=== PATIENT | male | born 1950 | race Caucasian/White ===

== ENCOUNTER → 2020-03-11 10:56 | Outpatient (BNVA) | payer MEDICARE, SELFPAY | PROVIDERS: Family Provider Nurse Practitioner; PCP Nurse Practitioner Family; Visit Provider Nurse Practitioner Family | DX: R42 Dizziness and giddiness (principal); R05 Cough; J18.9 Pneumonia, unspecified organism | CPT/HCPCS: 71046; 80053; 85025 ==

== ENCOUNTER 2020-03-13 09:45 | Emergency (ER) | payer MEDICARE, SELFPAY ==
[2020-03-13 09:49] VITALS: BP 163/85; PULSE 105; RESP 15; TEMP 36.8; O2SAT 98; BMI 27.8
--- NOTE | 2020-03-13 10:13 | W.ED.CHESTPA ---
HPI - Chest Pain General: Chief Complaint: Chest Pain Stated Complaint: chest pressure Time Seen by Provider: 03/13/20 09:48 History of Present Illness: HPI narrative: Patient presents with a complaint of cough and shortness of breath. He denies any fever. Patient complained of chest pain in triage however tells me that he does not have any pain or discomfort except for when he coughs. MD complaint: chest discomfort Onset (ago): unknown Timing of current episode: episodic Prior episodes: Yes Onset: during rest and during exertion Pain location: substernal and epigastric Pain radiation: none Quality: burning Relieving factors: nothing Exacerbating factors: exertion Associated symptoms: Reports dyspnea Review of Systems General: Reports: 10 or more systems reviewed and unremarkable except in HPI and below Resp: Reports: dyspnea PFSH ED PFSH: Medical History Anxiety Diabetes mellitus Hyperlipidemia Hypertension Surgical History Hx of amputation Hx of colonoscopy Social History Smoking and tobacco status: current every day smoker cigarettes Packs smoked per day: 1 Years cigarettes smoked: 60 Second hand smoke exposure: Yes Alcohol intake: former Year of sobriety/quit date alcohol: 1985 Substance/Drug Use: never Lives independently: Yes Household members: children Marital status: service: No Current occupational status: retired History of recent travel: No Current gender identity: Male Physical Exam Const: COMMON NORMALS: no acute distress, patient oriented x3, no limitations and alert HENMT: COMMON NORMALS: normocephalic, atraumatic, external ears normal and Normal external nose present HEAD & SCALP: normocephalic and atraumatic FACE & SINUS: normal facial exam NOSE: Normal external nose present EXTERNAL EAR: Yes external ears normal MOUTH: Normal oral and palatal mucosa present Neck/C-Spine: COMMON NORMALS: full ROM, no lymphadenopathy, supple, no meningeal signs and no JVD GENERAL: Yes normal visual inspection Resp: COMMON NORMALS: normal respiratory effort, No retractions, No use of accessory muscles and clear to auscultation bilaterally AUSCULTATION: clear to auscultation bilaterally Cardio: COMMON NORMALS: no JVD, regular rate and regular rhythm RATE: regular rate RHYTHM: regular rhythm GI: COMMON NORMALS: Normal to inspection, nondistended, normoactive bowel sounds present, Soft to palpation, non-tender, No hepatosplenomegaly present and no masses INSPECTION: Yes normal to inspection AUSCULTATION: Yes normoactive bowel sounds PALPATION: Yes Soft to palpation and Yes No hepatosplenomegaly present PERCUSSION: normal to percussion : COMMON NORMALS: Yes no CVA tenderness BLADDER/KIDNEY EXAM: Yes no CVA tenderness Back/Pelvis: COMMON NORMALS: no CVA tenderness, thoracic and lumbar spine normal to inspection, no thoracic nor lumbar tenderness, thoraco-lumbar ROM normal and straight leg raise negative bilaterally Extremity: COMMON NORMALS: normal to inspection, full ROM, capillary refill normal, no joint enlargement, no clubbing, cyanosis or edema, no calf tenderness and no pedal edema Neuro: COMMON NORMALS: patient oriented x3, moves all extremities, no focal motor deficits and no sensory deficits noted SENSORIUM/ORIENTATION: Yes alert MENINGEAL SIGNS: Yes no meningeal signs Psych: COMMON NORMALS: mental status grossly normal, Normal thought process present, cooperative, normal affect and speech normal SPEECH: Yes normal speech THOUGHT PROCESS: Normal thought process present Skin: COMMON NORMALS: no rashes or lesions noted, no wounds, turgor normal, no jaundice, no petechiae and no mottling GENERAL SKIN EXAM: no rashes or lesions noted and turgor normal Course Vital Signs: Vital signs: Vital Signs Temperature 98.2 F 03/13/20 09:49 Pulse Rate 96 03/13/20 12:08 Respiratory Rate 18 03/13/20 12:08 Blood Pressure 166/87 03/13/20 12:08 Pulse Oximetry 98 03/13/20 12:08 MDM - Chest Pain Lab Data: Labs: Lab Results 03/13/20 03/13/20 03/13/20 Range/Units 10:19 10:19 10:19 WBC 15.1 H (4.0-10.0) 10^3/ uL RBC 4.76 (4.1-5.3) 10^6/u L Hgb 14.1 (11.7-16.6) g/dL Hct 43.5 (42.0-52.0) % MCV 91.4 (80-94) fL MCH 29.6 (28.0-34.0) pg MCHC 32.4 (30.0-36.0) g/dL RDW 13.9 (12.1-15.1) % Plt Count 256 (130-400) 10^3/c mm MPV 10.4 (7.4-10.4) fL Neut % (Auto) 74.3 % Lymph % (Auto) 17.6 % [place] % (Auto) 6.2 % Eos % (Auto) 1.0 % Baso % (Auto) 0.4 % Neut # (Auto) 11.20 H (1.8-7.7) 10^3/u L Lymph # (Auto) 2.7 (0.8-4.8) 10^3/u L [place] # (Auto) 0.9 (0.2-0.9) 10^3/u L Eos # (Auto) 0.2 (0.0-0.8) 10^3/u L Baso # (Auto) 0.1 (0.0-0.1) 10^3/u L Nucleated RBC % (a uto) 0 % Nucleated RBCs # 0.0 /100WBC PT 12.80 (10.5-13.3) SECO NDS INR 0.94 (0.8-1.2) D-Dimer 0.86 H (0-0.59) ug/mIFE U Sodium 140 (136-145) mmol/L Potassium 3.7 (3.5-5.1) mmol/L Chloride 106 (98-107) mmol/L Carbon Dioxide 25 (22-29) mmol/L Anion Gap 12.7 (5-19) BUN 20 (8-23) mg/dL Creatinine 0.9 (0.7-1.2) mg/dL GFR Calculation Not Reportable Glucose 150 H (65-115) mg/dL Calculated Osmolal ity 289 (285-295) mOsm/k g Calcium 9.8 (8.5-10.5) mg/dL Total Bilirubin 0.2 (0.15-1.2) mg/dL AST 11 (0-40) U/L ALT 7 (0-41) U/L Alkaline Phosphata se 68 (40-130) IU/L Troponin T Baselin e (0-15) ng/L Troponin T 120 Min curyung (0-15) ng/L NT-Pro-B Natriuret Pep 131 H (0-125) pg/mL Total Protein 6.9 (6.6-8.7) g/dL Albumin 4.4 (3.5-5.2) g/dL Globulin 2.5 (1.3-4.6) g/dL 03/13/20 03/13/20 Range/Units 10:19 12:06 WBC (4.0-10.0) 10^3/ uL RBC (4.1-5.3) 10^6/u L Hgb (11.7-16.6) g/dL Hct (42.0-52.0) % MCV (80-94) fL MCH (28.0-34.0) pg MCHC (30.0-36.0) g/dL RDW (12.1-15.1) % Plt Count (130-400) 10^3/c mm MPV (7.4-10.4) fL Neut % (Auto) % Lymph % (Auto) % [place] % (Auto) % Eos % (Auto) % Baso % (Auto) % Neut # (Auto) (1.8-7.7) 10^3/u L Lymph # (Auto) (0.8-4.8) 10^3/u L [place] # (Auto) (0.2-0.9) 10^3/u L Eos # (Auto) (0.0-0.8) 10^3/u L Baso # (Auto) (0.0-0.1) 10^3/u L Nucleated RBC % (a uto) % Nucleated RBCs # /100WBC PT (10.5-13.3) SECO NDS INR (0.8-1.2) D-Dimer (0-0.59) ug/mIFE U Sodium (136-145) mmol/L Potassium (3.5-5.1) mmol/L Chloride (98-107) mmol/L Carbon Dioxide (22-29) mmol/L Anion Gap (5-19) BUN (8-23) mg/dL Creatinine (0.7-1.2) mg/dL GFR Calculation Glucose (65-115) mg/dL Calculated Osmolal ity (285-295) mOsm/k g Calcium (8.5-10.5) mg/dL Total Bilirubin (0.15-1.2) mg/dL AST (0-40) U/L ALT (0-41) U/L Alkaline Phosphata se (40-130) IU/L Troponin T Baselin e 12 (0-15) ng/L Troponin T 120 Min [place] 11.52 (0-15) ng/L NT-Pro-B Natriuret Pep (0-125) pg/mL Total Protein (6.6-8.7) g/dL Albumin (3.5-5.2) g/dL Globulin (1.3-4.6) g/dL Discharge Plan Discharge Patient Disposition: Home Clinical Impression: Atypical chest pain Condition: Stable Prescriptions: No Action prednisone 20 mg tablet 40 mg PO DAILY 5 Days Qty: 10 RF: 0 doxycycline hyclate 100 mg capsule 100 mg PO BID 10 Days Qty: 20 RF: 0 vitamin E 200 unit Capsule 200 unit PO DAILY RF: 0 pravastatin 40 mg Tablet 40 mg PO BEDTIME RF: 0 atenolol 100 mg Tablet 100 mg PO DAILY RF: 0 Vitamin C 250 mg Tablet 250 mg PO DAILY RF: 0 metformin 500 mg Tablet Extended Release 24hr 1,000 mg PO DAILY RF: 0 garlic 200 mg Tablet 200 mg PO DAILY RF: 0 Discharge Orders: Discharge Order (Routine); Ordered 03/13/20 Ordered By: Alton Curiel Referrals: Tracy Vásquez FNP [Primary Care Provider] - Coding Level of Care Code ED Flight Engineer Manager for Chg Fwd Exam Comprehensive
[2020-03-13 10:18] VITALS: BP 153/82; PULSE 104; RESP 15; O2SAT 97
--- NOTE | 2020-03-13 10:32 | XRR_ITS ---
PROCEDURE INFORMATION: Exam: XR Chest, 1 View Exam date and time: 03/13/2020 10:33 AM Age: 69 years old Clinical indication: Dyspnea; Additional info: Cp/dyspnea TECHNIQUE: Imaging protocol: XR of the chest Views: 1 view. COMPARISON: CR XR chest 2V* [id number] 03/11/2020 11:16 AM FINDINGS: Lungs: Emphysematous change and interstitial prominence. Pleural space: Incomplete visualization of the right costophrenic angle. Mild pleural thickening. Heart/Mediastinum: Epicardial fat, without cardiomegaly. Bones/joints: Right rib fractures. Osteopenia and degenerative change. Other findings: Punctate radiopaque densities overlying the proximal left humerus. When correlating with the previous study, no significant interval changes are present. XR/XR chest 1V portable [id number] IMPRESSION: Stable appearance of the chest, not significantly changed from 03/11/20.
[2020-03-13 10:41] LABS: Basophils # 0.1 10^3/uL (0.0-0.1); Basophils % 0.4 %; Eosinophils # 0.2 10^3/uL (0.0-0.8); Hematocrit 43.5 % (42.0-52.0); Hemoglobin 14.1 g/dL (11.7-16.6); Lymphocytes # 2.7 10^3/uL (0.8-4.8); Lymphocytes % 17.6 %; Mean Corpuscular HGB Conc 32.4 g/dL (30.0-36.0); Mean Corpuscular Hemoglobin 29.6 pg (28.0-34.0); Mean Corpuscular Volume 91.4 fL (80-94); Mean Platelet Volume 10.4 fL (7.4-10.4); Monocytes # 0.9 10^3/uL (0.2-0.9); Monocytes % 6.2 %; Neutrophils % 74.3 %; Nucleated Red Blood Cells % 0 %; Platelet Count 256 10^3/cmm (130-400); Red Blood Count 4.76 10^6/uL (4.1-5.3); Red Cell Distribution Width 13.9 % (12.1-15.1); White Blood Count 15.1 10^3/uL (4.0-10.0)
[2020-03-13 10:52] VITALS: BP 122/85; PULSE 98; RESP 18; O2SAT 94
[2020-03-13] MEDS: sodium chloride 0.9% 500 ML 999 ML IV (10:52)
[2020-03-13 11:00] LABS: INR 0.94 (0.8-1.2)
[2020-03-13 11:03] LABS: D Dimer 0.86 ug/mIFEU (0-0.59)
[2020-03-13 11:13] LABS: Troponin(5th) Baseline 12 ng/L (0-15)
--- NOTE | 2020-03-13 11:16 | PC.NURSE ---
report recieved from berny bryant assumed care.
--- NOTE | 2020-03-13 11:20 | CTR_ITS ---
PROCEDURE INFORMATION: Exam: CT Angiography Chest With Contrast Exam date and time: 03/13/2020 11:35 AM Age: 69 years old Clinical indication: Cough; Additional info: Cp TECHNIQUE: Imaging protocol: Computed tomographic angiography of the chest with intravenous contrast. 3D rendering: MIP and/or 3D reconstructed images were created by the technologist. Radiation optimization: All CT scans at this facility use at least one of these dose optimization techniques: automated exposure control; mA and/or kV adjustment per patient size (includes targeted exams where dose is matched to clinical indication); or iterative reconstruction. Contrast material: OMNI 350; Contrast volume: 95 ml; Contrast route: INTRAVENOUS (IV); COMPARISON: CR (CHEST, ) 03/13/2020 10:38 AM RADIATION DOSE METRICS: Total DLP (mGy-cm): 1061.46 FINDINGS: Pulmonary arteries: No pulmonary embolus in the opacified pulmonary arteries. Aorta: Atherosclerotic plaque and calcification in the thoracic aorta. Lungs: Emphysematous change, interstitial prominence, bronchial dilatation, mild airspace disease, and chronic granulomatous disease. Noncalcified 3 mm right upper lobe nodule (series 2: Image 229). For patients at low risk (minimal or absent history of smoking and of other known risk factors), no routine follow-up is indicated. For patients at high risk (history of smoking or of other known risk factors), consider optional CT at 12 months. (Silvino et al., Fleischner Society, 2017). Pleural space: No pleural effusion. Heart: Coronary artery calcification. Mediastinal space: Small hiatal hernia. Lymph nodes: Calcified and noncalcified lymph nodes, the majority of which are subcentimeter in size. Kidneys and ureters: Renal cysts, including a 8.1 cm left renal cyst. Bones/joints: Old rib fractures. Degenerative change. Multiple punctate metallic densities in the proximal left humerus. Scoliosis, degenerative change, and Schmorl's nodes. CT/CT angio chest PE protcl [id number] IMPRESSION: 1. No pulmonary embolus in the opacified pulmonary arteries. 2. Emphysematous change, interstitial prominence, bronchial dilatation, mild airspace disease, and chronic granulomatous disease. 3. Noncalcified 3 mm right upper lobe nodule (series 2: Image 229). 4. Additional findings as described above. Radiation Dose CTDIVOL = (mGy): DLP = 1061.46 (mGy-cm)
[2020-03-13 11:22] LABS: Alanine Aminotransferase 7 U/L (0-41); Albumin Level 4.4 g/dL (3.5-5.2); Alkaline Phosphatase 68 IU/L (40-130); Anion Gap 12.7 (5-19); Aspartate Amino Transferase 11 U/L (0-40); Blood Urea Nitrogen 20 mg/dL (8-23); Calcium 9.8 mg/dL (8.5-10.5); Carbon Dioxide 25 mmol/L (22-29); Chloride 106 mmol/L (98-107); Globulin 2.5 g/dL (1.3-4.6); Glucose 150 mg/dL (65-115); NT Pro B Type Natriuretic Pept 131 pg/mL (0-125); Osmolality Calculated 289 mOsm/kg (285-295); Potassium 3.7 mmol/L (3.5-5.1); Sodium 140 mmol/L (136-145); Total Bilirubin 0.2 mg/dL (0.15-1.2); Total Protein 6.9 g/dL (6.6-8.7)
[2020-03-13 12:08] VITALS: BP 166/87; PULSE 96; RESP 18; O2SAT 98
[2020-03-13 12:30] VITALS: BP 165/94; PULSE 98; RESP 14; O2SAT 95
[2020-03-13 12:32] LABS: Troponin 5 2HR 11.52 ng/L (0-15)
[2020-03-13 13:00] VITALS: BP 156/95; PULSE 96; RESP 16; O2SAT 96
[2020-03-13 13:17] LABS: Troponin 5 2HR Delta -0.48 ABS# (0-10)
== END 2020-03-13 13:22 | disposition home or self-care (01) ==
PROVIDERS: Emergency Provider Family Medicine; PCP Nurse Practitioner Family
DX: R07.89 Other chest pain (principal); E11.9 Type 2 diabetes mellitus without complications; E78.5 Hyperlipidemia, unspecified; I10 Essential (primary) hypertension; F17.210 Nicotine dependence, cigarettes, uncomplicated
CPT/HCPCS: 12345; 36415; 71045; 71275; 80053; 83880; 84484; 85025; 85378; 85610; 99283; 99284; J7040

== ENCOUNTER → 2020-03-14 11:49 | Outpatient (BNVA) | payer MEDICARE, SELFPAY | PROVIDERS: PCP Nurse Practitioner Family; Visit Provider Nurse Practitioner Family | DX: E11.9 Type 2 diabetes mellitus without complications (principal); K21.9 Gastro-esophageal reflux disease without esophagitis; R42 Dizziness and giddiness; R07.89 Other chest pain; J18.9 Pneumonia, unspecified organism; Z68.27 Body mass index [BMI] 27.0-27.9, adult; F17.210 Nicotine dependence, cigarettes, uncomplicated | CPT/HCPCS: 80061; 83036 ==

== ENCOUNTER → 2020-03-24 09:10 | Outpatient (BNVA) | payer MEDICARE, SELFPAY | PROVIDERS: PCP Nurse Practitioner Family; Visit Provider Nurse Practitioner Family | DX: E11.65 Type 2 diabetes mellitus with hyperglycemia (principal); M25.50 Pain in unspecified joint; K21.9 Gastro-esophageal reflux disease without esophagitis; E78.5 Hyperlipidemia, unspecified; R94.31 Abnormal electrocardiogram [ECG] [EKG]; Z11.59 Encounter for screening for other viral diseases; Z68.29 Body mass index [BMI] 29.0-29.9, adult | CPT/HCPCS: 85651; 86038; 86140; 86431; 86618; 86666; 86757; 87635 ==

== ENCOUNTER → 2020-08-19 09:40 | Outpatient (BNVA) | payer MEDICARE, SELFPAY | PROVIDERS: PCP Nurse Practitioner; Visit Provider Nurse Practitioner | DX: E11.65 Type 2 diabetes mellitus with hyperglycemia (principal); K21.9 Gastro-esophageal reflux disease without esophagitis; I10 Essential (primary) hypertension | CPT/HCPCS: 80053; 80061; 82043; 83036 ==

== ENCOUNTER → 2020-11-17 10:14 | Outpatient (BNVA) | payer MEDICARE, SELFPAY | PROVIDERS: PCP Nurse Practitioner; Visit Provider Nurse Practitioner | DX: K21.9 Gastro-esophageal reflux disease without esophagitis (principal); I10 Essential (primary) hypertension; E11.65 Type 2 diabetes mellitus with hyperglycemia | CPT/HCPCS: 80053; 81000 ==

== ENCOUNTER → 2021-02-08 09:37 | Outpatient (BNVA) | payer MEDICARE, SELFPAY | PROVIDERS: PCP Nurse Practitioner; Visit Provider Nurse Practitioner | DX: K21.9 Gastro-esophageal reflux disease without esophagitis (principal); I10 Essential (primary) hypertension; E11.65 Type 2 diabetes mellitus with hyperglycemia; R09.81 Nasal congestion; E78.5 Hyperlipidemia, unspecified; Z79.899 Other long term (current) drug therapy | CPT/HCPCS: 81000 ==

== ENCOUNTER → 2022-08-28 17:37 | Outpatient (BNVA) | payer MEDICARE, SELFPAY | PROVIDERS: PCP Nurse Practitioner; Visit Provider Nurse Practitioner Family | DX: R53.83 Other fatigue (principal); E11.65 Type 2 diabetes mellitus with hyperglycemia; E55.9 Vitamin D deficiency, unspecified | CPT/HCPCS: 80053; 80061; 82043; 82306; 82607; 83036; 84403; 84443; 85025 ==

== ENCOUNTER → 2023-01-22 08:14 | Outpatient (BNVA) | payer SELFPAY | PROVIDERS: PCP Nurse Practitioner Family; Visit Provider Dermatology | DX: Z01.89 Encounter for other specified special examinations (principal) ==

== ENCOUNTER 2023-06-07 06:56 | Emergency (ER) | payer MEDICARE, SELFPAY ==
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
--- NOTE | 2023-06-07 07:20 | W.ED.SOB ---
HPI - SOB/Dyspnea General: Chief Complaint: Shortness of Breath/Dyspnea Stated Complaint: sob Time Seen by Provider: 06/07/23 06:57 Source: patient Mode of arrival: ambulatory History of Present Illness: HPI Narrative: 73-year-old male presents emergency room with complaints of shortness of breath sore throat and chronic cough. He has been through a couple rounds of steroids and some antibiotics he states his symptoms are still present and not really improved at all. No fever no productive cough no vomiting or diarrhea. MD elicited complaint: shortness of breath Pertinent past history: COPD Onset (ago): week(s) Timing: intermittent Severity: mild Exacerbating factors: nothing Relieving factors: nothing Associated symptoms: Reports cough and orthopnea; Deny abdominal pain, chest congestion, chest pain, diaphoresis, dizziness, extremity pain, fever(s), hemoptysis, lightheadedness, myalgias, nausea, palpitations, paresthesias, polydipsia, polyuria, rash, sense of impending doom, syncope or vomiting Treatment prior to arrival: none Review of Systems Const: Denies: fever(s), chills or diaphoresis Card: Reports: dyspnea on exertion and orthopnea; Denies: chest pain, palpitations, lightheadedness or syncope Resp: Denies: dyspnea, hemoptysis or chest congestion GI: Denies: abdominal pain, nausea or vomiting : Denies: dysuria, urinary frequency or urinary urgency Musc: Denies: neck pain, back pain or extremity pain Skin/Breast: Denies: rash Neuro: Denies: dizziness Endo: Denies: polyuria or polydipsia PFSH ED PFSH: Medical History Anxiety Chronic nasal congestion Diabetes mellitus with hyperglycemia, without long-term current use of insulin Hyperlipidemia Hypertension Personal history of nicotine dependence Surgical History Hx of amputation Hx of colonoscopy Family History Other Cancer Dementia Diabetes Heart disease Stroke Suicide Social History Smoking and tobacco/nicotine status: current every day tobacco/nicotine user cigarettes Packs smoked per day: 1 Years cigarettes smoked: 60 Second hand smoke exposure: Yes Alcohol intake: former Year of sobriety/quit date alcohol: 1985 Substance/Drug Use: never Adopted: No Caregiver/support person: No Lives independently: Yes Household members: children Housing: House Marital status: Number of children: 4 service: No Current occupational status: retired Do you think of yourself as: Straight/Heterosexual Current gender identity: Male Physical Exam Const: GENERAL APPEARANCE: cooperative and comfortable ORIENTATION/CONSCIOUSNESS: Yes awake, Yes oriented to person, Yes oriented to place and Yes oriented to time HENMT: COMMON NORMALS: normocephalic, atraumatic and hearing grossly normal bilaterally HEAD & SCALP: normocephalic and atraumatic Resp: COMMON NORMALS: normal respiratory effort, No retractions and No use of accessory muscles AUSCULTATION: crackles and wheezes Cardio: COMMON NORMALS: regular rate, regular rhythm and No murmurs present (Cardio) RATE: regular rate RHYTHM: regular rhythm GI: COMMON NORMALS: Soft to palpation and No hepatosplenomegaly present AUSCULTATION: Yes normoactive bowel sounds PALPATION: Yes Soft to palpation, No Tenderness to palpation present (GI), No Guarding due to palpation present (GI) and Yes No hepatosplenomegaly present Extremity: COMMON NORMALS: normal to inspection, capillary refill normal, no clubbing, cyanosis or edema, no calf tenderness and no pedal edema Neuro: SENSORIUM/ORIENTATION: Yes oriented to person, Yes oriented to place and Yes oriented to time Skin: COMMON NORMALS: no rashes or lesions noted GENERAL SKIN EXAM: no rashes or lesions noted Course Vital Signs: Vital signs: Vital Signs Temperature 98.2 F 06/07/23 07:21 Pulse Rate 93 06/07/23 08:50 Respiratory Rate 19 H 06/07/23 08:50 Blood Pressure 152/91 06/07/23 08:50 Pulse Oximetry 95 06/07/23 08:50 Oxygen Delivery Me thod Room Air 06/07/23 08:50 MDM - SOB/Dyspnea Medical Decision Making Chest x-ray shows some pulmonary vascular congestion. It is worse than previous but his oxygen saturations are normal. I think he does have some underlying COPD as well as some potentially some congestive heart failure his BNP is significantly elevated. He is given IV Lasix here in the emergency room recommend starting 20 mg daily of oral Lasix. Additionally start on Symbicort and started on lisinopril. Set him up for an outpatient echocardiogram and follow-up with primary care physician. Per patient's request he is asked us to set him up with a physician notes been forwarded to case management. Medical Records I reviewed the patient's medical records. Lab Data I reviewed the patient's lab results. 06/07/23 07:40 06/07/23 07:40 Labs/Radiology: Laboratory Results WBC 12.45 10^3/uL (3.29-11.43) H 06/07/23 07:40 RBC 4.72 10^6/uL (3.85-5.65) 06/07/23 07:40 Hgb 13.50 g/dL (11.27-16.99) 06/07/23 07:40 Hct 45.2 % (37-53) 06/07/23 07:40 MCV 95.8 fl (82-101) 06/07/23 07:40 MCH 28.6 pg (27-33) 06/07/23 07:40 MCHC 29.9 g/dL (30-55) L 06/07/23 07:40 RDW 14.9 % (12.1-15.1) 06/07/23 07:40 Plt Count 220 10^3/cmm (157-399) 06/07/23 07:40 MPV 10.3 fL (7.4-10.4) 06/07/23 07:40 Neut % (Auto) 70.9 % 06/07/23 07:40 Lymph % (Auto) 13.2 % 06/07/23 07:40 [place] % (Auto) 9.3 % 06/07/23 07:40 Eos % (Auto) 5.0 % 06/07/23 07:40 Baso % (Auto) 0.6 % 06/07/23 07:40 Neut # (Auto) 8.83 10^3/uL (1.8-7.7) H 06/07/23 07:40 Lymph # (Auto) 1.6 10^3/uL (0.8-4.8) 06/07/23 07:40 [place] # (Auto) 1.2 10^3/uL (0.2-0.9) H 06/07/23 07:40 Eos # (Auto) 0.6 10^3/uL (0.0-0.8) 06/07/23 07:40 Baso # (Auto) 0.1 10^3/uL (0.0-0.1) 06/07/23 07:40 Nucleated RBC % (auto) 0 % 06/07/23 07:40 Nucleated RBCs # 0.0 /100WBC 06/07/23 07:40 Sodium 142 mmol/L (136-145) 06/07/23 07:40 Potassium 4.1 mmol/L (3.5-5.1) 06/07/23 07:40 Chloride 110 mmol/L (98-107) H 06/07/23 07:40 Carbon Dioxide 20 mmol/L (22-29) L 06/07/23 07:40 Anion Gap 16.1 (5-19) 06/07/23 07:40 BUN 17 mg/dL (8-23) 06/07/23 07:40 Creatinine 1.0 mg/dL (0.7-1.2) 06/07/23 07:40 GFR Calculation Not Reportable 06/07/23 07:40 Glucose 154 mg/dL (65-115) H 06/07/23 07:40 Calculated Osmolality 299 mOsm/kg (285-295) H 06/07/23 07:40 Calcium 8.9 mg/dL (8.5-10.5) 06/07/23 07:40 Total Bilirubin 0.2 mg/dL (0.15-1.2) 06/07/23 07:40 AST 38 U/L (0-40) 06/07/23 07:40 ALT 56 U/L (0-41) H 06/07/23 07:40 Alkaline Phosphatase 79 U/L (40-130) 06/07/23 07:40 NT-Pro-B Natriuret Pep 4193 pg/mL (0-450) H 06/07/23 07:40 Total Protein 6.8 g/dL (6.6-8.7) 06/07/23 07:40 Albumin 3.0 g/dL (3.5-5.2) L 06/07/23 07:40 Globulin 3.8 g/dL (1.3-4.6) 06/07/23 07:40 Group A Strep Rapid Negative (Negative) 06/07/23 07:38 All radiology interpretation(s) finalized by discharge Discharge Plan Discharge Patient Disposition: Home Clinical Impression: Acute exacerbation of chronic obstructive airways disease, Congestive heart failure, HTN (hypertension), benign Condition: Stable Prescriptions: New lisinopril 5 mg tablet 5 mg PO DAILY Qty: 30 0RF furosemide 20 mg tablet 20 mg PO DAILY Qty: 30 0RF Symbicort 80-4.5 mcg/actuation HFA aerosol inhaler 2 inh inhalation BID Qty: 10.2 0RF No Action Farxiga 5 mg tablet 5 mg PO QAM Qty: 90 1RF pravastatin 80 mg tablet 80 mg PO DAILY Qty: 90 1RF pantoprazole [Protonix] 40 mg tablet,delayed release (DR/EC) 40 mg PO DAILY Qty: 90 1RF cholecalciferol (vitamin D3) 25 mcg (1,000 unit) capsule 25 mcg PO DAILY ascorbic acid (vitamin C) [Vitamin C] 250 mg Tablet 500 mg PO DAILY garlic 200 mg Tablet 200 mg PO DAILY ginseng 100 mg Capsule 100 mg PO DAILY vitamin E (dl, acetate) 180 mg (400 unit) Capsule 180 mg PO DAILY atenolol 100 mg tablet 100 mg PO QPM Discharge Orders: Discharge ED (Routine); Ordered 06/07/23 Ordered By: Jermaine Stone Referrals: Tracy Vásquez FNP [Primary Care Provider] - Discharge Diet: Low Salt Discharge Activity: Increase activity as tolerated Patient Instructions: Opioid Safety, Pain Management Activity Restrictions/Additional Instructions: Thank you for choosing [facility] for your healthcare needs today. Please realize this is an emergency room and that we are providing you with a medical screening exam and this may not be complete and all inclusive of all the testing and or work up that you may need to determine your ailment or severity of your illness. It is very important that you follow up as instructed or that you return to the Emergency Department should you have concerns or if your condition changes or worsens in any way. You do have some component of COPD as well as appearance of congestive heart failure and a chest x-ray. Your blood pressure was also elevated recommend that you start on lisinopril 5 mg daily Lasix 20 mg daily this all of your blood pressure and decrease fluid from congestive heart failure. We will set you up for an outpatient echocardiogram to evaluate further. Additionally recommend you start Symbicort 2 puffs twice daily for COPD. Follow-up with your primary care doctor within the next week Coding Level of Care Code ED Erp Specialist for German Blakely
[2023-06-07 07:21] VITALS: BP 142/89; PULSE 91; RESP 18; TEMP 36.8; O2SAT 94
--- NOTE | 2023-06-07 07:21 | ECG_ITS ---
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 Measurements Intervals [place] Rate: 95 P: 67 TN: 143 QRS: 119 QRSD: 130 T: 32 QT: 390 QTc: 490 Interpretive Statements SINUS RHYTHM RIGHT AXIS DEVIATION [QRS AXIS > 100] RIGHT BUNDLE BRANCH BLOCK [120+ ms QRS DURATION, UPRIGHT V1, 40+ ms S IN I/aVL/V4/V5/V6] Compared to ECG 03/13/2020 09:58:36 Right-axis deviation now present Sinus tachycardia no longer present Electronically Signed On 06-07-2023 16:27:23 CDT by Danielle Latif M.D. [id number]
[2023-06-07 07:26] VITALS: BP 146/86; PULSE 92; RESP 19; O2SAT 95
[2023-06-07 07:47] VITALS: PULSE 92; RESP 16; O2SAT 96
[2023-06-07] MEDS: ipratropium-albuterol 3 mL Neb INHALATION (07:48)
[2023-06-07 07:50] VITALS: PULSE 95
[2023-06-07 07:52] LABS: Basophils # 0.1 10^3/uL (0.0-0.1); Basophils % 0.6 %; Eosinophils # 0.6 10^3/uL (0.0-0.8); Hematocrit 45.2 % (37-53); Lymphocytes # 1.6 10^3/uL (0.8-4.8); Lymphocytes % 13.2 %; Mean Corpuscular HGB Conc 29.9 g/dL (30-55); Mean Corpuscular Hemoglobin 28.6 pg (27-33); Mean Corpuscular Volume 95.8 fl (82-101); Mean Platelet Volume 10.3 fL (7.4-10.4); Monocytes # 1.2 10^3/uL (0.2-0.9); Monocytes % 9.3 %; Neutrophils # 8.83 10^3/uL (1.8-7.7); Neutrophils % 70.9 %; Nucleated Red Blood Cells % 0 %; Platelet Count 220 10^3/cmm (157-399); Red Blood Count 4.72 10^6/uL (3.85-5.65); Red Cell Distribution Width 14.9 % (12.1-15.1); White Blood Count 12.45 10^3/uL (3.29-11.43)
[2023-06-07 07:58] LABS: Rapid Strep A Test Negative (Negative)
[2023-06-07 08:20] LABS: Alanine Aminotransferase 56 U/L (0-41); Alkaline Phosphatase 79 U/L (40-130); Anion Gap 16.1 (5-19); Aspartate Amino Transferase 38 U/L (0-40); Blood Urea Nitrogen 17 mg/dL (8-23); Calcium 8.9 mg/dL (8.5-10.5); Carbon Dioxide 20 mmol/L (22-29); Chloride 110 mmol/L (98-107); Globulin 3.8 g/dL (1.3-4.6); Glucose 154 mg/dL (65-115); Osmolality Calculated 299 mOsm/kg (285-295); Potassium 4.1 mmol/L (3.5-5.1); Sodium 142 mmol/L (136-145); Total Bilirubin 0.2 mg/dL (0.15-1.2); Total Protein 6.8 g/dL (6.6-8.7)
[2023-06-07] MEDS: FUROsemide 10 mg/mL SDV 4mL 40 MG IVP (08:43)
[2023-06-07 08:50] VITALS: BP 152/91; PULSE 93; RESP 19; O2SAT 95
[2023-06-07 08:54] LABS: NT Pro B Type Natriuretic Pept 4193 pg/mL (0-450)
--- NOTE | 2023-06-07 09:42 | DCPLANNER ---
Sent a message to [facility] to establish care with a physician vs. a Nurse practitioner. Clinic to contact patient.
== END 2023-06-07 09:42 | disposition home or self-care (01) ==
PROVIDERS: Emergency Provider Family Medicine; PCP Nurse Practitioner Family
DX: J44.1 Chronic obstructive pulmonary disease with (acute) exacerbation (principal); I11.0 Hypertensive heart disease with heart failure; I50.9 Heart failure, unspecified; F17.210 Nicotine dependence, cigarettes, uncomplicated; E11.9 Type 2 diabetes mellitus without complications; E78.5 Hyperlipidemia, unspecified
CPT/HCPCS: 36415; 71045; 80053; 83880; 85025; 87081; 87880; 93005; 94640; 96374; 99285; J1940

== ENCOUNTER → 2023-10-22 09:42 | Outpatient (BNVA) | payer SELFPAY | PROVIDERS: PCP Nurse Practitioner Family; Visit Provider Nurse Practitioner Family | DX: Z01.89 Encounter for other specified special examinations (principal) ==

== ENCOUNTER 2024-05-27 23:00 | Inpatient (IN) | payer MEDICARE, SELFPAY ==
[2024-05-27 23:01] VITALS: BP 106/72; PULSE 85; RESP 34; TEMP 36.4; O2SAT 84; BMI 27.3
--- NOTE | 2024-05-27 23:08 | XRR_ITS ---
PROCEDURE INFORMATION: Exam: XR Chest Exam date and time: 05/27/2024 11:31 PM Age: 74 years old Clinical indication: Pain; Chest pressure; Additional info: Shortness of breath TECHNIQUE: Imaging protocol: Radiologic exam of the chest. Views: 1 view. COMPARISON: CR XR chest 1V portable [id number] 06/07/2023 7:45 AM FINDINGS: Lungs: Redemonstration of diffuse interstitial opacities and bronchial wall thickening. Mild pulmonary vascular congestion is also noted. Interval increased opacity overlying the right lateral chest wall and right lateral aspect of the lung, unclear whether pulmonary parenchymal or overlapping shadows. Pleural spaces: No large pleural effusion. No pneumothorax. Heart/Mediastinum: The cardiomediastinal silhouette is stable in appearance. Vasculature: The thoracic aorta is tortuous and atherosclerotic. Bones/joints: Old fracture of the right ribs are better assessed on the prior CT of the chest from 03/13/2022. Redemonstration of multiple metallic densities in the proximal left humerus. There are degenerative changes of the left shoulder joint. Redemonstration of scoliosis and degenerative changes of the thoracic spine. XR/XR chest 1V portable [id number] IMPRESSION: 1. Redemonstration of diffuse interstitial opacities and bronchial wall thickening. Mild pulmonary vascular congestion is also noted. 2. Interval increased opacity overlying the right lateral chest wall and right lateral aspect of the lung, unclear whether pulmonary parenchymal or overlapping shadows. 3. Continued attention on follow-up is recommended. 4. The thoracic aorta is tortuous and atherosclerotic. 5. Additional chronic findings as outlined.
--- NOTE | 2024-05-27 23:09 | ECG_ITS ---
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1950 Requested By: Dorothy Armstrong Order Number: [id number] Reading MD: CATHERINE DOW Measurements Intervals [place] Rate: 79 P: 62 WI: 160 QRS: 124 QRSD: 136 T: 83 QT: 447 QTc: 513 Interpretive Statements SINUS RHYTHM WITH FREQUENT VENTRICULAR PREMATURE COMPLEXES RIGHT AXIS DEVIATION [QRS AXIS > 100] RIGHT BUNDLE BRANCH BLOCK [120+ ms QRS DURATION, UPRIGHT V1, 40+ ms S IN I/aVL/V4/V5/V6] ST DEPRESSION, CONSIDER SUBENDOCARDIAL INJURY [0.1+ mV ST DEPRESSION] Compared to ECG 06/07/2023 07:21:01 Ventricular premature complex(es) now present ST (T wave) deviation now present Electronically Signed On 05-30-2024 18:13:33 CDT by CATHERINE DOW [id number]
[2024-05-27 23:12] VITALS: PULSE 80; O2SAT 82
[2024-05-27 23:26] VITALS: PULSE 89; RESP 23; O2SAT 96
[2024-05-27 23:26] LABS: ABG PCO2 34.9 mmHg (35-45); ABG PH Result 7.39 (7.35-7.45); Alveolar-Arterial Oxygen Gradi 34.9 mmHg (5-10); Arterial Blood Gas Hematocrit 50.9 % (42-52); Base Excess ABG -3.3 mmol/L (-2.0-2.0); Blood Gas Sample Site Brachial, right; Blood Gas Sample Type Arterial; Carboxyhemoglobin 2.3 %THgb (0.4-20.1); HCO3 ABG 20.9 mmol/L (22-26); HGB O2 Sat 93.4 % (95-100); Ionized Calcium Level - ABG 1.2 mmol/L (1.1-1.4); Methemoglobin 0.9 % (0.4-1.5); Oxygen Device BIPAP; Oxygen Saturation ABG 96.5; PO2 ABG 83.4 mmHg (80.0-100.0); PO2 FiO2 Ratio Arterial Blood 151; Potassium Level - ABG 3.9 mmol/L (3.5-5.0); Total Hemoglobin 16.6 g/dL (14-18)
[2024-05-27] MEDS: methylPREDNISolone sod succ 125 mg/2 mL INJ IVP (23:26)
[2024-05-27] MEDS: ondansetron 2 mg/ML SDV 2 mL 8 MG IVP (23:26)
[2024-05-27] MEDS: sodium chloride 0.9% 1,000 ML 999 ML IV (23:26)
[2024-05-27 23:27] VITALS: PULSE 79; RESP 20; O2SAT 98
[2024-05-27] MEDS: albuterol 2.5 mg/3 mL Neb INHALATION (23:27)
[2024-05-27] MEDS: ipratropium-albuterol 3 mL Neb INHALATION (23:27)
[2024-05-27 23:29] LABS: Basophils # 0.1 10^3/uL (0.0-0.1); Basophils % 0.4 %; Eosinophils # 0.5 10^3/uL (0.0-0.8); Eosinophils % 2.5 %; Hematocrit 50.5 % (37-53); Lymphocytes # 4.5 10^3/uL (0.8-4.8); Mean Corpuscular HGB Conc 32.3 g/dL (30-55); Mean Corpuscular Hemoglobin 28.6 pg (27-33); Mean Corpuscular Volume 88.6 fl (82-101); Mean Platelet Volume 12.3 fL (7.4-10.4); Monocytes # 1.4 10^3/uL (0.2-0.9); Monocytes % 6.8 %; Neutrophils # 13.85 10^3/uL (1.8-7.7); Neutrophils % 67.6 %; Nucleated Red Blood Cells % 0 %; Platelet Count 291 10^3/cmm (157-399); Red Cell Distribution Width 14.6 % (12.1-15.1); White Blood Count 20.52 10^3/uL (3.29-11.43)
--- NOTE | 2024-05-27 23:30 | W.ED.SOB ---
HPI - SOB/Dyspnea General: Chief Complaint: Shortness of Breath/Dyspnea Stated Complaint: low blood pressure, sob, chest pain Time Seen by Provider: 05/27/24 23:01 History of Present Illness: HPI Narrative: 74-year-old man with a history of hypertension, hyperlipidemia, diabetes and tobacco dependence who presents emergency room with shortness of breath and some mild chest pain. He presents by ambulance. EMS reports he was quite hypotensive on their arrival. He lost control of his bowels. Initially his blood pressures in the 100s here. He then drops back down into the 80s. He says pressure was in his left chest. Related Data Home Medications Medication Instructions Recorded Confirmed ascorbic acid (vitamin C) 250 mg 500 mg PO DAILY 03/13/20 11/07/23 tablet (Vitamin C) garlic 200 mg tablet 200 mg PO DAILY 03/13/20 11/07/23 cholecalciferol (vitamin D3) 25 25 mcg PO DAILY 08/28/22 11/07/23 mcg (1,000 unit) capsule ginseng 100 mg capsule 100 mg PO DAILY 06/07/23 11/07/23 vitamin E (dl, acetate) 180 mg 180 mg PO DAILY 06/07/23 11/07/23 (400 unit) capsule Previous Rx's Medication Instructions Recorded albuterol sulfate 90 mcg/actuation 2 puff inhalation Q6H PRN 11/07/23 aerosol inhaler (Ventolin HFA) shortness of breath or wheezing #18 grams fluticasone fur. 100 mcg-umeclid 1 inh inhalation Q24H #60 ea 11/07/23 62.5 mcg-vilant 25 mcg inhalat.powder (Trelegy Ellipta) furosemide 20 mg tablet 20 mg PO DAILY #90 tabs 11/07/23 lisinopril 5 mg tablet 5 mg PO DAILY #90 tabs 11/07/23 pantoprazole 40 mg tablet,delayed 40 mg PO DAILY #90 tabs 11/07/23 release (Protonix) pravastatin 80 mg tablet 80 mg PO DAILY #90 tabs 11/07/23 atenolol 100 mg tablet See Rx Instructions .Route 05/21/24 .COMPLEX #30 tabs dapagliflozin propanediol 5 mg See Rx Instructions .Route 05/21/24 tablet (Farxiga) .COMPLEX #30 tabs Allergies Allergy/AdvReac Type Severity Reaction Status Date / Time Penicillins Allergy ALGY-Rash Verified 05/27/24 23:22 Review of Systems Narrative: Constitutional symptoms: Negative except as documented in HPI. Skin symptoms: Negative except as documented in HPI. Eye symptoms: Negative except as documented in HPI. ENMT symptoms: Negative except as documented in HPI. Respiratory symptoms: Negative except as documented in HPI. Cardiovascular symptoms: Negative except as documented in HPI. Gastrointestinal symptoms: Negative except as documented in HPI. Genitourinary symptoms: Negative except as documented in HPI. Musculoskeletal symptoms: Negative except as documented in HPI. Neurologic symptoms: Negative except as documented in HPI. Psychiatric symptoms: Negative except as documented in HPI. Endocrine symptoms: Negative except as documented in HPI. PFSH ED PFSH: Medical History Chronic nasal congestion Personal history of nicotine dependence Diabetes mellitus with hyperglycemia, without long-term current use of insulin Anxiety Hypertension Hyperlipidemia Surgical History Hx of amputation Hx of colonoscopy Family History Other Cancer Dementia Diabetes Heart disease Stroke Suicide Social History Smoking and tobacco/nicotine status: current every day tobacco/nicotine user cigarettes Packs smoked per day: 1 Years cigarettes smoked: 60 Second hand smoke exposure: Yes Alcohol intake: former Year of sobriety/quit date alcohol: 1985 Substance/Drug Use: never Adopted: No Caregiver/support person: No Lives independently: Yes Household members: children Housing: House Marital status: Number of children: 4 service: No Current occupational status: retired Do you think of yourself as: Straight/Heterosexual Current gender identity: Male Physical Exam Narrative: EXAM NARRATIVE: General: Alert, moderate distress. Skin: Warm, dry. Head: Normocephalic, atraumatic. Neck: Supple, trachea midline. Eye: Extraocular movements are intact. Ears, nose, mouth and throat: Dry oral mucosa Cardiovascular: Regular rate and rhythm, Normal peripheral perfusion. Respiratory: coarse, scattered wheeze, moderate increased wob. tachypnea, prolonged expiratory phase. breath sounds are equal, Symmetrical chest wall expansion. Gastrointestinal: Soft, Nontender, Non distended, Normal bowel sounds. Musculoskeletal: Normal ROM, no deformity. Neurological: Alert and oriented to person, place, time, and situation, No focal neurological deficit observed. Psychiatric: Cooperative, appropriate mood & affect. Course Vital Signs: Vital signs: Vital Signs Temperature 97.5 F L 05/27/24 23:01 Pulse Rate 74 05/28/24 00:05 Respiratory Rate 20 H 05/28/24 00:05 Blood Pressure 111/62 05/28/24 00:05 Pulse Oximetry 96 05/28/24 00:05 Oxygen Delivery Me thod BiPAP 05/28/24 00:05 Oxygen Flow Rate 6 05/27/24 23:12 Fraction of Inspir ed Oxygen 55 05/27/24 23:26 MDM - SOB/Dyspnea Medical Decision Making Differential diagnosis for patient with shortness of breath includes but is not limited to and based on the above HPI, review of systems and physical exam: Pneumonia. Bronchitis. Asthma or COPD with acute exacerbation. Acute coronary syndrome / AR. Pulmonary embolism. Anxiety. Congestive heart failure. Viral infections including influenza and Covid-19. Atrial fibrillation. Anxiety. Pleural effusion. Pneumothorax. Orders placed to evaluate differential diagnosis based on the above differential, HPI and physical exam Initial emergent intervention: The patient was then hypoxemic respiratory failure on presentation. Due to work of breathing and hypoxemia I placed him on a BiPAP immediately. His oxygen saturations improved quickly on the BiPAP and he seemed much more comfortable. I reviewed EKGs from the field. There was no ST elevation in the field. Initial EKG: Normal sinus rhythm, considerable ectopy and ST depression but no significant ST elevation, normal NE & QRS intervals, This was reviewed and interpreted by myself the ER physician Cardiac monitoring at around 2315 it was noticed changes in what look like ST elevation and so an EKG was repeated Repeat EKG: Normal sinus rhythm, ST elevation inferior leads. reciprocal depression lateral leads. , no ectopy, normal NE & QRS intervals, this was reviewed and interpreted by myself the emergency room physician. Discussed with pattern grader supervisor loan documentation specialist Dr. Livingston. He recommends calling code. Consultation: I spoke with Dr. Livingston who is on-call for cardiology. He recommends [place]. He recommends 600 Plavix. 324 chewable aspirin. 4000 units heparin. These were all given. AB.3 on BiPAP O2 sats 94%. Chest x-ray: Cardiomegaly, pulmonary edema versus infiltrate. Films were interpreted by myself the emergency room provider and pending final radiology review. Lab Review: Laboratory results were reviewed and interpreted by myself the emergency room physician. Leukocytosis with white count 21,000. Hemoglobin normal at 16. BUN/creatinine slightly elevated at 21 and 1.5 his baseline is around 1. proBNP is 1500. proBNP from about a year ago when he was in heart failure is over 4000. Initial troponin is 40. Glucose elevated at 230. Initial lactate is elevated at 3.2. I reviewed the patient's medical record. Reexamination: At the time of transfer to the Timber Sizer Operator patient was satting in the upper 90s with decreased work of breathing on BiPAP. Blood pressures were above 100 with 8 mics of Levophed. Assessment and plan: ST elevation myocardial infarction Hypoxemic respiratory failure Congestive heart failure Pulmonary edema Hypotension Possible sepsis versus cardiogenic shock ?Patient was placed on BiPAP and oxygenation has improved quite a bit. He has a white count of 20,000 and has been hypotensive which is consistent with sepsis so fluids and broad-spectrum antibiotics were given. However this may just be cardiogenic shock and congestive heart failure causing his symptoms. 1 L normal saline bolus were given. I held on any further and started Levophed. Concern for cardiogenic shock versus sepsis. Blood cultures and lactic acid were sent. ?Currently on 8 mics of Levophed. ?Patient's work of breathing and hypoxemia have improved considerably on a BiPAP. - 600 Plavix. 324 chewable aspirin. 4000 units heparin. -I discussed the patient with the hospitalist on-call who is admitting the patient. - Discussed findings and plan with patient. Answered any questions. - All laboratory values were reviewed and interpreted personally by myself, the ER physician - All imaging was reviewed and interpreted personally by myself, the ER physician. - Evaluation and treatment of this problem were appropriate in the emergency setting\ Critical care -I spent a total of >35 minutes of critical care time managing the patient, independent of any other practitioner. -The time involved in the performance of separately reportable procedures was not counted towards critical care time. Lab Data 05/27/24 23:17 05/27/24 23:40 Labs/Radiology: Laboratory Results WBC 20.52 10^3/uL (3.29-11.43) H 05/27/24 23:17 RBC 5.70 10^6/uL (3.85-5.65) H 05/27/24 23:17 Hgb 16.30 g/dL (11.27-16.99) 05/27/24 23:17 Hct 50.5 % (37-53) 05/27/24 23:17 MCV 88.6 fl (82-101) 05/27/24 23:17 MCH 28.6 pg (27-33) 05/27/24 23:17 MCHC 32.3 g/dL (30-55) 05/27/24 23:17 RDW 14.6 % (12.1-15.1) 05/27/24 23:17 Plt Count 291 10^3/cmm (157-399) 05/27/24 23:17 MPV 12.3 fL (7.4-10.4) H 05/27/24 23:17 Neut % (Auto) 67.6 % 05/27/24 23:17 Lymph % (Auto) 22.0 % 05/27/24 23:17 [place] % (Auto) 6.8 % 05/27/24 23:17 Eos % (Auto) 2.5 % 05/27/24 23:17 Baso % (Auto) 0.4 % 05/27/24 23:17 Neut # (Auto) 13.85 10^3/uL (1.8-7.7) H 05/27/24 23:17 Lymph # (Auto) 4.5 10^3/uL (0.8-4.8) 05/27/24 23:17 [place] # (Auto) 1.4 10^3/uL (0.2-0.9) H 05/27/24 23:17 Eos # (Auto) 0.5 10^3/uL (0.0-0.8) 05/27/24 23:17 Baso # (Auto) 0.1 10^3/uL (0.0-0.1) 05/27/24 23:17 Nucleated RBC % (auto) 0 % 05/27/24 23:17 Nucleated RBCs # 0.0 /100WBC 05/27/24 23:17 D-Dimer 3.89 ug/mLFEU (0-0.59) H 05/27/24 23:40 Specimen Type Arterial 05/27/24 23:15 Sample Site Brachial, right 05/27/24 23:15 ABG pH 7.39 (7.35-7.45) 05/27/24 23:15 ABG pCO2 34.9 mmHg (35-45) L 05/27/24 23:15 ABG pO2 83.4 mmHg (80.0-100.0) 05/27/24 23:15 ABG PO2/FiO2 Ratio 151 05/27/24 23:15 ABG HCO3 20.9 mmol/L (22-26) L 05/27/24 23:15 ABG O2 Saturation 96.5 05/27/24 23:15 ABG Base Excess -3.3 mmol/L (-2.0-2.0) L 05/27/24 23:15 [place] Test N/a 05/27/24 23:15 A-a O2 Gradient 34.9 mmHg (5-10) H 05/27/24 23:15 Hematocrit 50.9 % (42-52) 05/27/24 23:15 Hgb O2 Saturation 93.4 % (95-100) L 05/27/24 23:15 Carboxyhemoglobin 2.3 %THgb (0.4-20.1) 05/27/24 23:15 Methemoglobin 0.9 % (0.4-1.5) 05/27/24 23:15 Total Hemoglobin 16.6 g/dL (14-18) 05/27/24 23:15 Sodium 140.0 mmol/L (131-143) 05/27/24 23:15 Potassium 3.9 mmol/L (3.5-5.0) 05/27/24 23:15 Glucose 230.0 mg/dL (70-115) H 05/27/24 23:15 Ionized Calcium 1.2 mmol/L (1.1-1.4) 05/27/24 23:15 O2 Delivery Device Bipap 05/27/24 23:15 FiO2 55.0 % 05/27/24 23:15 Prototype Machine Operator ID [email or web address] 05/27/24 23:15 Sodium 137 mmol/L (136-145) 05/27/24 23:40 Potassium 5.1 mmol/L (3.5-5.1) 05/27/24 23:40 Chloride 101 mmol/L (98-107) 05/27/24 23:40 Carbon Dioxide 23 mmol/L (22-29) 05/27/24 23:40 Anion Gap 18.1 (5-19) 05/27/24 23:40 BUN 21 mg/dL (8-23) 05/27/24 23:40 Creatinine 1.5 mg/dL (0.7-1.2) H 05/27/24 23:40 GFR Calculation Not Reportable 05/27/24 23:40 Glucose 214 mg/dL (65-115) H 05/27/24 23:40 Calculated Osmolality 293 mOsm/kg (285-295) 05/27/24 23:40 Lactic Acid 3.2 mmol/L (0.5-2.2) H 05/27/24 23:17 Calcium 8.7 mg/dL (8.5-10.5) 05/27/24 23:40 Total Bilirubin 0.3 mg/dL (0.15-1.2) 05/27/24 23:40 AST 17 U/L (0-40) 05/27/24 23:40 ALT 11 U/L (0-41) 05/27/24 23:40 Alkaline Phosphatase 94 U/L (40-130) 05/27/24 23:40 Troponin T Baseline 40 ng/L (0-15) H 05/27/24 23:17 C-Reactive Protein 8.3 mg/L (0.0-4.9) H 05/27/24 23:40 NT-Pro-B Natriuret Pep 1976 pg/mL (0-450) H 05/27/24 23:40 Total Protein 6.7 g/dL (6.6-8.7) 05/27/24 23:40 Albumin 4.0 g/dL (3.5-5.2) 05/27/24 23:40 Globulin 2.7 g/dL (1.3-4.6) 05/27/24 23:40 XR interpretation done by ED provider, pending radiology final review Discharge Plan Discharge Patient Disposition: Admitted As Inpatient Clinical Impression: ST elevation myocardial infarction (STEMI), Congestive heart failure, Acute hypoxemic respiratory failure, Pulmonary edema, Hypotension Condition: Stable Coding Level of Care Code ED Human Factors Engineer for German Blakely
[2024-05-27 23:42] VITALS: PULSE 84; O2SAT 93
[2024-05-27] MEDS: meropenem 500 mg SDV IVP (23:45)
[2024-05-27] MEDS: linezolid premix 600 MG/300 ML PREMIX 300 MG IV (23:45)
[2024-05-27] MEDS: aspirin 81 mg Chew Tablet 324 MG PO (23:46)
[2024-05-27] MEDS: heparin 5,000 unit/mL INJ 1 mL 4000 UNIT IVP (23:49)
[2024-05-27 23:50] LABS: Troponin(5th) Baseline 40 ng/L (0-15)
[2024-05-27 23:51] LABS: Lactic Sepsis W/Reflex 3.2 mmol/L (0.5-2.2)
[2024-05-27] MEDS: clopidogrel 300 mg Tablet 600 MG PO (23:51)
[2024-05-27] MEDS: norepinephrine 4 MG/250 ML BAG 30 MG IV (23:55)
[2024-05-27 23:57] VITALS: PULSE 76; RESP 22; O2SAT 95
[2024-05-28] VITALS (12 sets, daily range): BP systolic 111; BP diastolic 62; PULSE 49–98; RESP 16–36; O2SAT 69–96
[2024-05-28] LABS: D Dimer 3.89 ug/mLFEU (0-0.59)
--- NOTE | 2024-05-28 00:04 | PM.HP ---
Providers/Chief Complaint Admitting Physician: Kelvin Livingston MD/Cardiology Primary Care Provider: MARVIN Vargas Chief Complaint: low blood pressure, sob, chest pain History of Present Illness Rubén Love is a 74 year old male with past medical history of COPD who presented to hospital with acute onset shortness of breath. Started about 2 hours ago. Also associated with the substernal chest pressure. EKG shows right bundle branch block with borderline ST elevation in inferior leads. Cardiac Yoghurt Maker was activated. Patient currently on bipap. He is hypotensive and is on levophed. Review of Systems General: Reports: 10 or more systems reviewed and unremarkable except in HPI and below Medications/Allergies Home Medications Medication Instructions Recorded Confirmed Last Taken Type ascorbic acid (vitamin C) 250 mg 500 mg PO DAILY 03/13/20 11/07/23 03/10/20 History tablet (Vitamin C) garlic 200 mg tablet 200 mg PO DAILY 03/13/20 11/07/23 03/10/20 History cholecalciferol (vitamin D3) 25 25 mcg PO DAILY 08/28/22 11/07/23 Unknown History mcg (1,000 unit) capsule ginseng 100 mg capsule 100 mg PO DAILY 06/07/23 11/07/23 Unknown History vitamin E (dl, acetate) 180 mg 180 mg PO DAILY 06/07/23 11/07/23 Unknown History (400 unit) capsule albuterol sulfate 90 mcg/actuation 2 puff inhalation Q6H PRN 11/07/23 11/07/23 Unknown Rx aerosol inhaler (Ventolin HFA) shortness of breath or wheezing #18 grams fluticasone fur. 100 mcg-umeclid 1 inh inhalation Q24H #60 ea 11/07/23 11/07/23 Unknown Rx 62.5 mcg-vilant 25 mcg inhalat.powder (Trelegy Ellipta) furosemide 20 mg tablet 20 mg PO DAILY #90 tabs 11/07/23 11/07/23 Unknown Rx lisinopril 5 mg tablet 5 mg PO DAILY #90 tabs 11/07/23 11/07/23 Unknown Rx pantoprazole 40 mg tablet,delayed 40 mg PO DAILY #90 tabs 11/07/23 11/07/23 Unknown Rx release (Protonix) pravastatin 80 mg tablet 80 mg PO DAILY #90 tabs 11/07/23 11/07/23 Unknown Rx atenolol 100 mg tablet See Rx Instructions .Route 05/21/24 05/21/24 Unknown Rx .COMPLEX #30 tabs dapagliflozin propanediol 5 mg See Rx Instructions .Route 05/21/24 05/21/24 Unknown Rx tablet (Farxiga) .COMPLEX #30 tabs Allergies Allergy/AdvReac Type Severity Reaction Status Date / Time Penicillins Allergy ALGY-Rash Verified 05/27/24 23:22 PFSH Acute PFSH: Medical History Chronic nasal congestion Personal history of nicotine dependence Diabetes mellitus with hyperglycemia, without long-term current use of insulin Anxiety Hypertension Hyperlipidemia Surgical History Hx of amputation Hx of colonoscopy Family History Other Cancer Dementia Diabetes Heart disease Stroke Suicide Social History Smoking and tobacco/nicotine status: current every day tobacco/nicotine user cigarettes Packs smoked per day: 1 Years cigarettes smoked: 60 Second hand smoke exposure: Yes Alcohol intake: former Year of sobriety/quit date alcohol: 1985 Substance/Drug Use: never Adopted: No Caregiver/support person: No Lives independently: Yes Household members: children Housing: House Marital status: Number of children: 4 service: No Current occupational status: retired Do you think of yourself as: Straight/Heterosexual Current gender identity: Male Vitals/I&O/Wt Last Vital Signs Temp 97.5 F L 05/27/24 23:01 Pulse 89 05/27/24 23:26 Resp 34 H 05/27/24 23:01 BP 106/72 05/27/24 23:01 Pulse Ox 96 05/27/24 23:26 O2 Del Method Nasal Cannula 05/27/24 23:01 O2 Flow Rate 5 05/27/24 23:01 FiO2 55 05/27/24 23:26 Weight last 48 hrs Weight 200 lb Weight 180 lb Physical Exam Narrative: GENERAL: Patient is alert, awake and oriented x3. [] NECK: No jugular vein distension. [] HEENT: No cyanosis. No icterus. No pallor. [] HEART: Regular S1 and S2. LUNGS: Wheezing CENTRAL NERVOUS SYSTEM: Grossly nonfocal. [] EXTREMITIES: Lower extremities with 1+ edema bilaterally. Data 05/27/24 23:17 05/27/24 23:40 Micro: Microbiology 05/27/24 23:44 Blood Culture - Preliminary Blood SPECIMEN COLLECTED 05/27/24 23:40 Blood Culture - Preliminary Blood SPECIMEN COLLECTED A&P Assessment and plan (1) STEMI (ST elevation myocardial infarction): (2) Hyperlipidemia: Qualifiers: Hyperlipidemia type: unspecified Qualified Code(s): E78.5 - Hyperlipidemia, unspecified (3) Hypertension: Qualifiers: Hypertension type: essential hypertension Qualified Code(s): I10 - Essential (primary) hypertension (4) RBBB: (5) Personal history of nicotine dependence: (6) Diabetes mellitus with hyperglycemia, without long-term current use of insulin: Qualifiers: Diabetes mellitus type: type 2 Qualified Code(s): E11.65 - Type 2 diabetes mellitus with hyperglycemia (7) Pneumonia: Qualifiers: Pneumonia type: due to unspecified organism Laterality: bilateral Lung location: unspecified part of lung Qualified Code(s): J18.9 - Pneumonia, unspecified organism (8) COPD (chronic obstructive pulmonary disease): Qualifiers: COPD type: unspecified COPD Qualified Code(s): J44.9 - Chronic obstructive pulmonary disease, unspecified Plan Patient has presented with respiratory failure, chest pain with EKG findings consistent with possible STEMI. We will emergently perform coronary angiogram with possible PCI. Risks and benefits discussed. Aspirin, plavix loaded. Heparin bolus given Patient started on COPD exacerbation and possible pneumonia treatment by ER. We will consult medicine team for further management. Ordering echocardiogram Continue levophed. Attestations Medical Necessity Statement*: Care expected to cross 2 midnights. Patient has presented with acute respiratory failure, on bipap, and chest pain along with EKG concerning for possible STEMI. Going emergently to orthodontic laboratory technician. Coding Level of Care Code Acute Code for g Fwd Diagnoses STEMI (ST elevation myocardial infarction) I21.3 Hyperlipidemia, unspecified hyperlipidemia type E78.5 Hyperlipidemia type: unspecified Essential hypertension I10 Hypertension type: essential hypertension RBBB I45.10 Personal history of nicotine dependence Z87.891 Type 2 diabetes mellitus with hyperglycemia, without long-term current use of insulin E11.65 Diabetes mellitus type: type 2 Pneumonia of both lungs due to infectious organism, unspecified part of lung J18.9 Pneumonia type: due to unspecified organism Laterality: bilateral Lung location: unspecified part of lung Chronic obstructive pulmonary disease, unspecified COPD type J44.9 COPD type: unspecified COPD
[2024-05-28 00:10] LABS: Alanine Aminotransferase 11 U/L (0-41); Alkaline Phosphatase 94 U/L (40-130); Aspartate Amino Transferase 17 U/L (0-40); Blood Urea Nitrogen 21 mg/dL (8-23); C Reactive Protein 8.3 mg/L (0.0-4.9); Calcium 8.7 mg/dL (8.5-10.5); Carbon Dioxide 23 mmol/L (22-29); Chloride 101 mmol/L (98-107); Creatinine Clr Calc Pharmacy 45.8235; Globulin 2.7 g/dL (1.3-4.6); Glucose 214 mg/dL (65-115); Osmolality Calculated 293 mOsm/kg (285-295); Sodium 137 mmol/L (136-145); Total Bilirubin 0.3 mg/dL (0.15-1.2); Total Protein 6.7 g/dL (6.6-8.7)
--- NOTE | 2024-05-28 00:11 | PC.NURSE ---
Attempted to reach son via phone. Voicemail left at this time
[2024-05-28 00:12] LABS: Anion Gap 18.1 (5-19); NT Pro B Type Natriuretic Pept 1976 pg/mL (0-450); Potassium 5.1 mmol/L (3.5-5.1)
--- NOTE | 2024-05-28 00:53 | PM.MISC ---
Miscellaneous Note Purpose of Documentation: Brief procedure note Note: Patient had coronary angiogram showing totally occluded proximal large sized left circumflex. Had successful revascularization with 2 stents. During procedure he was put on bipap. He went into atrial fibrillation. After balloon angioplasty he had an episode of ventricular tachycardia and was shocked x1 which put him back into atrial fibrillation. PLAN: Transferring to ICU. Started on amiodarone. Continue aspirin, plavix Consulting medicine team for assistance with management of medical issues.
--- NOTE | 2024-05-28 01:09 | ECG_ITS ---
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: : [id number] Requested By: Dorothy Armstrong Order Number: [id number] Reading MD: CATHERINE DOW Measurements Intervals [place] Rate: 78 P: 144 UT: 144 QRS: 103 QRSD: 167 T: -50 QT: 437 QTc: 499 Interpretive Statements ECTOPIC ATRIAL RHYTHM RIGHT AXIS DEVIATION [QRS AXIS > 100] RIGHT BUNDLE BRANCH BLOCK [120+ ms QRS DURATION, UPRIGHT V1, 40+ ms S IN I/aVL/V4/V5/V6] MARKED ST ELEVATION, CONSIDER INFERIOR INJURY [MARKED ST ELEVATION W/O NORMALLY INFLECTED T-WAVE IN II/aVF] ACUTE SD WARNING: DATA QUALITY MAY AFFECT INTERPRETATION Compared to ECG 05/27/2024 23:21:51 Ectopic atrial rhythm now present Myocardial infarct finding now present Electronically Signed On 05-30-2024 18:22:46 CDT by CATHERINE DOW [email or web address]
[2024-05-28 01:14] LABS: Reflex Lactate Order REFLEX LACTIC ORDERD
[2024-05-28 02:06] LABS: ABG PCO2 47.1 mmHg (35-45); Arterial Blood Gas Hematocrit 46.4 % (42-52); Base Excess ABG -17.9 mmol/L (-2.0-2.0); Blood Gas Allen Test Pos; Blood Gas Sample Site Not specified; Blood Gas Sample Type Arterial; HCO3 ABG 12.7 mmol/L (22-26); Oxygen Device BIPAP; PO2 ABG 55.6 mmHg (80.0-100.0); PO2 FiO2 Ratio Arterial Blood 85
[2024-05-28 02:07] LABS: ABG PH Result 7.04 (7.35-7.45)
--- NOTE | 2024-05-28 02:35 | XACV_ITS ---
Exam Room: [facility] Ht: 173 cm Wt: 91 kg BSA: 2.11 m2 Gender: Male : 1950 Any Known Allergies: Penicillins Exam Priority: Routine Procedure(s): Procedure Description: Diagnostic procedure Procedure Description: PCI procedure Procedure Description: PTCA Procedure Description: Miscellaneous Procedure Description: IABP Insertion Procedure Description: Temporary Pacemaker Insertion Procedure Description: ACT Procedure Description: Coronary Angiography Diagnostic Cath Status: Emergency Diagnostic Findings * INDICATION: Cardiogenic shock, severe bradycardia, ST elevation inferior/lateral leads. * Left Main has no significant disease. * Left Anterior Descending has diffuse luminal irregularities. * Right Coronary Artery not injected. * Proximal Circumflex: Thrombotic occlusion of proximal to mid stents. * Coronary angiography shows left dominance. PCI Status: Emergency PCI Indication: STEMI - Immediate PCI for STEMI Interventional Findings * Proximal Circumflex: 100% stenosis treated with a AB TREK 2.75X15 RX BALLOON. 0% residual stenosis, TAPAN: 3 flow. * Procedure detail: We engaged the left main artery with XB 3.5 guide catheter. Run-through wire was used to cross the thrombotic stent segment. Balloon angioplasty was performed with 2.75 x 15 mm semicompliant balloon. This restored brisk flow in circumflex artery territory. IV heparin was administered to maintain anticoagulation. Patient was put on Aggrastat. Balloon pump was inserted and position confirmed under fluoroscopic guidance. Temporary transvenous pacemaker was placed as well. 5 mauritanian sheath inserted in left common femoral artery to be used as an arterial line. . Conclusions 1. Acute stent thrombosis of left circumflex stents. S/p revascularization with balloon angioplasty. Severe bradycardia post temporary transvenous pacemaker placement. Cardiogenic shock status post intra-aortic balloon pump insertion.. 2. Proximal Circumflex was treated with a Balloon. Recommendations * Continue aggrastat for 6 hours. * Transfer back to ICU. Overall prognosis is guarded. Interventional RX Recommendation: PCI w/o planned CABG Diagnostic RX Recommendation: PCI w/o planned CABG Anticoagulation: Heparin Pressures Phase:Rest AO : 87 / 56 ( 66 ) @ 11:45:55 PM / ( 0 ) @ 11:45:55 PM / ( -4 ) @ 11:45:55 PM / ( -4 ) @ 11:45:55 PM 79 / 79 ( 72 ) @ 5:02:00 AM 134 / 73 ( 73 ) @ 5:06:00 AM 118 / 59 ( 71 ) @ 5:16:00 AM / ( -29 ) @ 5:38:00 AM Clinical Evaluation EBL: 5mL-10mL Procedural Details Pre-Procedure Time Out. Identified patient by full name and date of as verbalized by the patient/guarantor. Does the consent match the physician's order: N/A Emergent. Accurate & Complete Informed Consent: N/A Emergent. Inpatient/Outpatient History & Physical on Chart: N/A Emergent. If H&P is completed, is and addenduem needed: Yes; If yes, is the addendum complete: No. Visualize and Verify Site with Patient/Guarantor: N/A. Relevant Radiology Images available: N/A. Pre-op teaching completed and patient verbalized understanding. Procedure started. Medical Malpractice Paralegal Indications: ACS <= 24 hours. Cardiovascular Instability: Yes, if yes, Hemodynamic Instability. Correct patient, site and procedure confirmed by cath team. PERRLA. Strong, equal hand psychiatry physician bilaterally. Lungs clear x 5 lobes. Pre Procedural Pulses: right femoral was Doppled. Pt arrived intubated and vent settings being monitored by RT. right groin was prepped with chloroprep then draped in the usual sterile fashion. Baseline sample Acquired. HR: 70 BPM. Physician notified. Physician arrived. Physician scrubbed in. Immediate Pre-Procedure Time Out. Correct Patient: Yes; Correct Procedure: Yes; Correct Site: Yes; Correct Patient Position: Yes; Correct Supplies: Yes; Dried Flammable Prep: Yes; Blood Products Available: N/A;. A 5 mauritanian JL4 catheter in over wire. Cine run performed of [facility]. Catheter inserted over the standard wire. 6 mauritanian XB 3.5 guide catheter was inserted over the wire. Runthrough guidewire was advanced through the guide catheter to lesion in the prox Circ. 2.75 x 15mm NC unable to cross. intact balloon out. Inflation number : 1 A AB TREK 2.75X15 RX BALLOON was prepped and advanced across the Prox CX , then inflated to 12 CANDELARIA for 0:07 seconds. Inflation number: 2 The AB TREK 2.75X15 RX BALLOON was reinflated across the Prox CX, to 12 CANDELARIA for 0:03 seconds. Inflation number: 3 The AB TREK 2.75X15 RX BALLOON was reinflated across the Prox CX, to 12 CANDELARIA for 0:03 seconds. Inflation number: 4 The AB TREK 2.75X15 RX BALLOON was reinflated across the Prox CX, to 12 CANDELARIA for 0:08 seconds. Balloon inserted to lesion in the prox Circ. Balloon out. ACT drawn. Results out of range high. Therapeutic limits - pre-heparin administration 90-150 seconds and monitoring heparin during a vascular procedure >250 seconds. TPM inserted. Paced at 60BPM, Async, Output 5. 6Fr R Femoral Glidesheath exchanged for 7 FR balloon pump sheath. Sheath upsized to a 7 Fr. ACT drawn. Results out of range high. Therapeutic limits - pre-heparin administration 90-150 seconds and monitoring heparin during a vascular procedure >250 seconds. Balloon pump wire inserted through the sheath. 40cc IAB inserted in the Right Femoral Artery. Augmentation: 1:1. Trigger: Pressure. Augmenter BP: 105. Pt in v-fib. Debfibrillated at 120J. Pt in V-fib. Defibrillated at 150J. TPM turned off at this time. left groin was prepped with chloroprep then draped in the usual sterile fashion. Lidocaine 1% infiltrated to the left groin. Arterial access obtained with micropuncture set. A 5 mauritanian JL4 catheter in over wire. Cine run performed of [facility]. TPM started, 50BPM, Sensitivity 3, Output 5. Augmented BP: 125. Epinephrine gtt infusing at 1mcg/min. Levophed gtt infusing at 20mcg/min. A Suture was successful obtaining hemostatsis at the Right Femoral artery insertion site. A Suture was successful obtaining hemostatsis at the Right Femoral vein insertion site. A Suture was successful obtaining hemostatsis at the Left Femoral artery insertion site. ABG's and lab work Drawn. Physician scrubbed out. Sheath(s) sutured into position with 2-0 silk and sterile 4x4's and Op-site applied over the site. No oozing or signs and symptoms of hematoma noted. Arterial sheath flushed and connected to tranducer and pressure bag with heparinized saline. No VTE prophylaxis required. Post Procedure: Pulses reassessed and unchanged. ACT drawn. Results out of range high. Therapeutic limits - pre-heparin administration 90-150 seconds and monitoring heparin during a vascular procedure >250 seconds. Total IV fluids: 50 mL. Medication's Wasted: Heparin = 4000 u. Post-op diagnosis: Stent thrombosis, Cardiogenic Shock. Complications: none. Estimated blood loss: 5mL-10mL. Airway: Intubated and responsive to pain only. Nausea/Vomiting: No. Procedure completed. Patient transferred by bed to ICU. Vital chart was stopped. Access Site Site: Right Femoral artery Sheath Size: 6 Fr Hemostasis Method: Suture Hemostasis Success: Successful Site: Right Femoral vein Sheath Size: 6 Fr Hemostasis Method: Suture Hemostasis Success: Successful Site: Left Femoral artery Sheath Size: 5 Fr Hemostasis Method: Suture Hemostasis Success: Successful Procedure Medications Start: 3:25 AM Stop: 3:25 AM Medication: Heparin Amount: 4000 units Route: I.V. Start: 3:27 AM Stop: 3:27 AM Medication: Epinephrine Amount: 1 mg Route: I.V. Start: 3:35 AM Stop: 3:35 AM Medication: Epinephrine Amount: 1 mg Route: I.V. Start: 3:35 AM Stop: 3:35 AM Medication: Heparin Amount: 2000 units Route: I.V. Start: 3:35 AM Stop: 3:35 AM Medication: Aggrastat 12.5 mg/250 mL Amount: 46 ml Route: I.V. bolus Start: 3:35 AM Stop: 3:35 AM Medication: Aggrastat 12.5 mg/250 mL Amount: 16.6 ml/hr Route: I.V. bolus Start: 3:58 AM Stop: 3:58 AM Medication: Epinephrine Amount: 1 mg Route: I.V. Start: 4:30 AM Stop: 4:30 AM Medication: Sodium Bicarbonate Amount: 50 meq Route: I.V. Start: 4:34 AM Stop: 4:34 AM Medication: Sodium Bicarbonate Amount: 50 meq Route: I.V. I, the attending physician, have reviewed and verified all procedure medications. Yes, all medications given per verbal order Report Signatures Finalized by Kelvin Livingston MD on 05/29/2024 08:21 AM
[2024-05-28] MEDS: EPINEPHrine 2.5 MG in sodium chloride 0.9% 250 ML 6.06 MG IV (02:38)
[2024-05-28] MEDS: FUROsemide 10 mg/mL SDV 4mL 40 MG IVP (02:45)
[2024-05-28] MEDS: methylPREDNISolone sod succ 125 mg/2 mL INJ 60 MG IVP (02:46)
[2024-05-28 02:57] LABS: Hematocrit 46.3 % (37-53); Mean Corpuscular HGB Conc 28.3 g/dL (30-55); Mean Corpuscular Hemoglobin 28.6 pg (27-33); Mean Corpuscular Volume 101.1 fl (82-101); Platelet Count 190 10^3/cmm (157-399); Red Blood Count 4.58 10^6/uL (3.85-5.65); Red Cell Distribution Width 14.6 % (12.1-15.1); White Blood Count 25.02 10^3/uL (3.29-11.43)
[2024-05-28] MEDS: midazolam hcl 100 MG/100 ML BAG IV (03:03)
[2024-05-28] MEDS: fentaNYL 1,000 MCG/100 ML BAG 2.5 MCG IV (03:04)
--- NOTE | 2024-05-28 03:05 | PM.ACPR ---
Procedure/Consent Time out: Time Out Performed: Yes Consent: Additional Consent Information: emergency procedure - family not reachable, patient obtunded, intubated Acute Procedures Central Line Placement: Left Femoral: Time out performed: Yes Patient placed on monitor/pulse ox: Yes MD prep: mask, gown and gloves Central line prep: Povidone-Iodine 1% Local anesthesia used: lidocaine 1% Amount of anesthesia used (ml): 5 Ultrasound used for placement: Yes Central line lumen inserted: triple Post procedure: sutured in place, good blood return, all ports aspirated, flushed, capped and sterile dressing applied Post procedure x-ray: other (N/A) Patient tolerated procedure: well and no complications Complications: none Epistaxis Control: Time out performed: Yes
--- NOTE | 2024-05-28 03:07 | PM.CONSULT ---
Providers/Reason For Consult Consulting Physician/Specialty*: Samira Rogel MD/ Hospitalist Reason for Consult*: STEMI, ICU management , COPD Requesting Physician: Kelvin Livingston M.D Attending Physician: Kelvin Livingston M.D Primary Care Provider: MARVIN Vargas History of Present Illness History of Present Illness Rubén Love is a 74 year old male with a history of hypertension, hyperlipidemia, diabetes and tobacco dependence who was brought to the emergency room earlier today for STEMI. He has been having some chest pain and shortness of breath. Patient was hypotensive upon arrival. He needed to be placed on BiPAP, he was started on IV fluids and broad-spectrum antibiotics due to concern for sepsis. Self Sealing Fuel Tank Repairer was activated and he underwent coronary angiogram. He had a totally occluded proximal LCx. He had successful revascularization with 2 stents. After balloon angioplasty he had an episode of V. tach and was shocked x 1, baseline rhythm was at A-fib. He was transferred to the ICU on amiodarone infusion. Patient was in cardiogenic shock, Levophed was up to 12 mics shortly since arrival in the ICU. Hospitalist team was consulted to manage medical comorbidities. At the time of assessment, patient was acutely sick. Cardiogenic shock, poor peripheral pulses. Temperature 95 Fahrenheit. ABG showed a pH of 7.038, 47.1 pCO2, 55.6 PaO2, saturation 71.4%. Decision was made to intubate. While awaiting intubation patient became bradycardic and then lost pulse. CPR was initiated and he received 2 chest compressions, was intubated and ventilated, epinephrine x 2 followed shortly afterwards by initiation of epinephrine infusion. Above interventions resulted in ROSC, patient thereafter became bradycardic and received atropine x 2. Cardiology at bedside, started external pacing and patent is being prepared to be taken back to labor custodian Review of Systems General: Reports: ROS unobtainable due to medical condition Medications/Allergies Home Medications Medication Instructions Recorded Confirmed Last Taken Type ascorbic acid (vitamin C) 250 mg 500 mg PO DAILY 03/13/20 11/07/23 03/10/20 History tablet (Vitamin C) garlic 200 mg tablet 200 mg PO DAILY 03/13/20 11/07/23 03/10/20 History cholecalciferol (vitamin D3) 25 25 mcg PO DAILY 08/28/22 11/07/23 Unknown History mcg (1,000 unit) capsule ginseng 100 mg capsule 100 mg PO DAILY 06/07/23 11/07/23 Unknown History vitamin E (dl, acetate) 180 mg 180 mg PO DAILY 06/07/23 11/07/23 Unknown History (400 unit) capsule albuterol sulfate 90 mcg/actuation 2 puff inhalation Q6H PRN 11/07/23 11/07/23 Unknown Rx aerosol inhaler (Ventolin HFA) shortness of breath or wheezing #18 grams fluticasone fur. 100 mcg-umeclid 1 inh inhalation Q24H #60 ea 11/07/23 11/07/23 Unknown Rx 62.5 mcg-vilant 25 mcg inhalat.powder (Trelegy Ellipta) furosemide 20 mg tablet 20 mg PO DAILY #90 tabs 11/07/23 11/07/23 Unknown Rx lisinopril 5 mg tablet 5 mg PO DAILY #90 tabs 11/07/23 11/07/23 Unknown Rx pantoprazole 40 mg tablet,delayed 40 mg PO DAILY #90 tabs 11/07/23 11/07/23 Unknown Rx release (Protonix) pravastatin 80 mg tablet 80 mg PO DAILY #90 tabs 11/07/23 11/07/23 Unknown Rx atenolol 100 mg tablet See Rx Instructions .Route 05/21/24 05/21/24 Unknown Rx .COMPLEX #30 tabs dapagliflozin propanediol 5 mg See Rx Instructions .Route 05/21/24 05/21/24 Unknown Rx tablet (Farxiga) .COMPLEX #30 tabs Allergies Allergy/AdvReac Type Severity Reaction Status Date / Time Penicillins Allergy ALGY-Rash Verified 05/27/24 23:22 Current Medications Generic Name Dose Route Start Last Admin Trade Name Freq PRN Reason Stop Dose Admin Norepinephrine Bitartrate 4 mg in 250 mls @ 0 mls/hr 05/27/24 23:45 05/28/24 02:06 Levophed IV 16 mcg/min .Q0M SONYA 60 mls/hr Titration Protocol Per Protocol Amiodarone HCl/Dextrose 360 mg in 200 mls @ 0 mls/hr 05/28/24 01:45 05/28/24 01:30 Nexterone IV 1 mg/min .Q0M SONYA 33.33 mls/hr Administration Protocol Per Protocol Fentanyl 1,000 mcg in 100 mls @ 0 mls/hr 05/28/24 02:15 05/28/24 03:04 Sublimaze IV 25 mcg/hr .Q0M SONYA 2.5 mls/hr Administration Protocol Per Protocol Midazolam HCl 100 mg in 100 mls @ 0 mls/hr 05/28/24 02:15 05/28/24 03:03 Versed IV 1 mg/hr .Q0M SONYA 1 mls/hr Administration Protocol Per Protocol Epinephrine HCl 2.5 mg/ Sodium 252.5 mls @ 0 mls/hr 05/28/24 02:45 05/28/24 02:38 Chloride IV 1 mcg/min .Q0M SONYA 6.06 mls/hr Administration Protocol Per Protocol Methylprednisolone Sodium Succinate 60 mg 05/28/24 02:00 05/28/24 02:46 Methylprednisolone Sod Succ 125 Mg/2 Ml Inj IVP 60 mg Q8H SONYA Administration PFSH Acute PFSH: Medical History Chronic nasal congestion Personal history of nicotine dependence Diabetes mellitus with hyperglycemia, without long-term current use of insulin Anxiety Hypertension Hyperlipidemia Surgical History Hx of amputation Hx of colonoscopy Family History Other Cancer Dementia Diabetes Heart disease Stroke Suicide Social History Smoking and tobacco/nicotine status: current every day tobacco/nicotine user cigarettes Packs smoked per day: 1 Years cigarettes smoked: 60 Second hand smoke exposure: Yes Alcohol intake: former Year of sobriety/quit date alcohol: 1985 Substance/Drug Use: never Adopted: No Caregiver/support person: No Lives independently: Yes Household members: children Housing: House Marital status: Number of children: 4 service: No Current occupational status: retired Do you think of yourself as: Straight/Heterosexual Current gender identity: Male Vitals/I&O/Wt Last Vital Signs Temp 97.5 F L 05/27/24 23:01 Pulse 74 05/28/24 00:05 Resp 20 H 05/28/24 00:05 BP 111/62 05/28/24 00:05 Pulse Ox 96 05/28/24 00:05 O2 Del Method BiPAP 05/28/24 00:05 O2 Flow Rate 6 05/27/24 23:12 FiO2 55 05/27/24 23:26 05/27/24 05/27/24 05/28/24 14:59 22:59 06:59 Intake Total 82.75 / 82.75 Balance 82.75 / 82.75 Weight last 48 hrs Weight 90.718 kg Weight 81.647 kg Physical Exam Narrative: General: intubated, sedated HEENT: PERRLA, pupils bilaterally equal and reactive Chest: crackles to auscultation B/L CVS: S1-S2 regular, no murmurs, no tachycardia, no gallops, no rubs Abdomen: Soft, nontender Neuro: intubated, sedated EXT: poor peripheral flow, poor capillary refill Urinary Catheter Management: Davis: Cath Placed During This Visit: yes Urinary Catheter Date of Insertion: 05/28/24 Urinary Catheter Time of Insertion: 01:30 Data 05/27/24 23:17 05/27/24 23:40 Micro: Microbiology 05/27/24 23:44 Blood Culture - Preliminary Blood SPECIMEN COLLECTED 05/27/24 23:40 Blood Culture - Preliminary Blood SPECIMEN COLLECTED A&P Assessment and plan (1) STEMI (ST elevation myocardial infarction): 74-year-old male presenting to the hospital with STEMI status post urgent intervention with 2 stents placed into the proximal LCx. Patient is currently in cardiogenic shock He is status post CPR as noted above. Planned to be taken back to [employer] Se[employer] Tank Repairer urgently right now. ASA, Plavix, Statin via NGT (2) Cardiogenic shock: Related to STEMI. Continue Levophed, epinephrine drip additionally added Titrate pressors to keep MAP greater than 65 (3) Cardiac arrest: Related to acute OH (4) Acute hypoxemic respiratory failure: Most likely to be related to pulmonary edema Chest x-ray showing diffuse bilateral interstitial infiltrates most likely to be fluid. Patient is currently intubated for acute hypoxemic respiratory failure Continue mechanical ventilation Repeat ABG once back from the Self Sealing Fuel Tank Repairer Current sedation with fentanyl and versed (5) COPD (chronic obstructive pulmonary disease): History of COPD, chest x-ray with diffuse bilateral infiltrates which appear more likely to be pulmonary edema DuoNeb every 6 hours scheduled Budesonide 0.5 mg twice daily scheduled inhalation Qualifiers: COPD type: unspecified COPD Qualified Code(s): J44.9 - Chronic obstructive pulmonary disease, unspecified (6) Diabetes mellitus with hyperglycemia, without long-term current use of insulin: Insulin sliding scale added while acutely ill in ICU Last a1c from October at 6.1 Qualifiers: Diabetes mellitus type: type 2 Qualified Code(s): E11.65 - Type 2 diabetes mellitus with hyperglycemia (7) Pulmonary edema: lasix 40mg iv x 1 now, further doses dependent on renal function and urine output (8) Metabolic acidosis: from circulatory collapse Add bicarb infusion (9) Leukocytosis: likely recative from acute stress, cannot exclude infection at this time given acuity of situation IV piperacillin/tazobactam and vancomycin while undergoing evaluation. Blood cultures taken. MRSA PCR. Respiratory viral panel. Plan DVT ppx: lovenox 40 PUD ppx: protonix Full code Unable to reach son in spite of multiple attempts for updates Consult Attestations Medical Necessity Statement: > 2 midnight stay will be needed Critical Care Time: The high probability of a clinically significant, sudden or life threatening deterioration of the patient's [cardiac, respiratory] system(s) required my full and direct attention, intervention and personal management. The critical care time is as shown. This time is in addition to time spent performing any reported procedures but includes the following: [x] Data and vital sign review and interpretation [x] Patient assessment, examination and intervention [x] Documentation [x] Medication orders and management Critical Care Time (min): 90 Coding Level of Care Code Acute Code for [facility] Diagnoses STEMI (ST elevation myocardial infarction) I21.3 Cardiogenic shock R57.0 Cardiac arrest I46.9 Acute hypoxemic respiratory failure J96.01 Chronic obstructive pulmonary disease, unspecified COPD type J44.9 COPD type: unspecified COPD Type 2 diabetes mellitus with hyperglycemia, without long-term current use of insulin E11.65 Diabetes mellitus type: type 2 Pulmonary edema J81.1 Metabolic acidosis E87.20 Leukocytosis D72.829
[2024-05-28] MEDS: succinylcholine 20 mg/mL SDV 10mL 100 MG IVP (03:08)
[2024-05-28 03:15] LABS: Absolute Eosinophils 0.3 10^3/cmm (0.0-0.7); Absolute Segmented Neutrophil 14.8 10/cmm (1.6-7.1); Eosinophils 1 %; Lymphocytes 27 %; Lymphocytes Absolute 7.5 10^3/cmm (1.2-3.4); Monocytes Absolute 1.3 10^3/cmm (0.1-0.6); Platelet Estimate Normal (Normal); Segmented Neutrophils 59 %; Total Cells Counted 100 (0-100)
--- NOTE | 2024-05-28 03:21 | PC.NURSE ---
Code Blue Code blue started at 220 Epi x 1 at 221 Pulse check, no pulse at 222 Bicarb x1, bicarb x 2 at 223 Pulse check, weak pulse at 224 Intubated size 8, 26 @ lip at 225 Atropine at 230
--- NOTE | 2024-05-28 04:21 | PM.MISC ---
Miscellaneous Note Purpose of Documentation: EVENT NOTE Note: Patient's respiratory status worsened in ICU. EKG showed persistent ST elevations. Patient was intubated. phlebotomist medical lab assistant team called to perform coronary angiogram. He became progressively hypotensive and was on levophed and epi gtt. 2 rounds of CPR were performed that were brief as there was loss of perfusing pressure. First round lasted 4 minutes, second round lasted 3 minutes. Coronary angiogram showed occluded stent in left circumflex artery. Balloon angioplasty restored flow. We placed a temporary transvenous pacemaker. Patient was anticoagulated appropriately and also started on aggrastat gtt for 6 hours. Intra-aortic balloon pump was placed for cardiac support. 5 fr sheath inserted in left femoral artery. Blood pressure improved. Patient will be transferred back to ICU. Attempts at contacting family unsuccessful.
[2024-05-28 04:27] LABS: Arterial Blood Gas Hematocrit 41.2 % (42-52); Base Excess ABG -31.7 mmol/L (-2.0-2.0); Blood Gas Sample Site Not specified; Blood Gas Sample Type Arterial; HCO3 ABG 6.4 mmol/L (22-26); Oxygen Device VENT; PO2 ABG 80.8 mmHg (80.0-100.0); PO2 FiO2 Ratio Arterial Blood 80
[2024-05-28 04:28] LABS: ABG PCO2 60.7 mmHg (35-45); ABG PH Result < 6.78 (7.35-7.45)
[2024-05-28 04:47] LABS: Anion Gap 39.8 (5-19); Blood Urea Nitrogen 21 mg/dL (8-23); Chloride 98 mmol/L (98-107); Creatinine Clr Calc Pharmacy 34.3676; Osmolality Calculated 322 mOsm/kg (285-295); Potassium 4.8 mmol/L (3.5-5.1); Sodium 140 mmol/L (136-145)
[2024-05-28 05:02] LABS: Carbon Dioxide 7 mmol/L (22-29); Glucose 624 mg/dL (65-115)
[2024-05-28 05:03] LABS: Lactic Sepsis W/Reflex 25.8 mmol/L (0.5-2.2); Partial Thromboplastin Time > 250.0 SECONDS (23.9-36.7)
--- NOTE | 2024-05-28 05:03 | XRR_ITS ---
PROCEDURE INFORMATION: Exam: XR Chest Exam date and time: 05/28/2024 5:12 AM Age: 74 years old Clinical indication: Injury or trauma; Other: Cpr x2 tonight; Fracture, traumatic and other: Og placement check; Other: Ribs; Additional info: Og placement, cpr 2x tonight, TECHNIQUE: Imaging protocol: Radiologic exam of the chest. Views: 1 view. COMPARISON: CR (CHEST, ) 05/27/2024 11:31 PM FINDINGS: Tubes, catheters and devices: Endotracheal tube projects about 5.4 cm from the rosie. Enteric tube traverses midline, catheter tip is subdiaphragmatic overlying the proximal stomach. Lungs: Diffuse increase interstitial lung markings with interval increase in patchy airspace densities predominantly of the bilateral upper lobes and retrocardiac region. Pleural spaces: Unremarkable. No pleural effusion. No pneumothorax. Heart/Mediastinum: Unremarkable. No cardiomegaly. Vasculature: Calcified atherosclerotic disease of the aortic arch. Bones/joints: Unchanged thoracic cage deformity over the right upper lateral aspect. Diffuse degenerative change of the visualized osseous structures. No displaced rib fractures, however given lung densities and overlying pacer pads, difficult to exclude. Soft tissues: Resuscitation pads are noted. XR/XR chest 1V portable [id number] IMPRESSION: 1. Findings suggestive of pulmonary edema can also be pulmonary contusions in the setting of cardiopulmonary resuscitation. 2. Background of interstitial prominence.
--- NOTE | 2024-05-28 05:09 | ECG_ITS ---
RASILIENT SYSTEMS Test Date: 2024-05-28 Pat Name: Rubén Love Department: Room: [facility] Gender: Male [employer] Attendant: : 1950 Requested By: Dorothy Armstrong Order Number: [id number] Lamar MD: CATHERINE DOW Measurements Intervals [place] Rate: 92 P: 0 IN: 0 QRS: 128 QRSD: 158 T: 36 QT: 436 QTc: 541 Interpretive Statements ATRIAL FIBRILLATION WITH ABERRANT CONDUCTION OR VENTRICULAR PREMATURE COMPLEXES RIGHT BUNDLE BRANCH BLOCK [120+ ms QRS DURATION, UPRIGHT V1, 40+ ms S IN I/aVL/V4/V5/V6] LEFT POSTERIOR FASCICULAR BLOCK [QRS AXIS > 109, INFERIOR Q] ST ELEVATION, CONSIDER INFERIOR INJURY [MARKED ST ELEVATION W/O NORMALLY INFLECTED T-WAVE IN II/aVF] ACUTE [place] Compared to ECG 05/28/2024 02:16:47 Ventricular premature complex(es) now present Aberrant conduction of supraventricular beat(s) now present Left posterior fascicular block now present Myocardial infarct finding still present Electronically Signed On 05-30-2024 18:22:22 CDT by CATHERINE DOW [email or web address]
[2024-05-28 05:14] LABS: Glucose Point of Care 496 mg/dL (70-110)
[2024-05-28 05:19] LABS: Troponin 5 6HR > 6000 ng/L (0-15); Troponin 5 6HR Delta 5960.00001 ng/L (0-12)
[2024-05-28] MEDS: sodium bicarbonate 150 MEQ in dextrose 5% 1,000 ML 100 MEQ IV (05:24)
[2024-05-28] MEDS: norepinephrine 4 MG/250 ML BAG 75 MG IV (05:32)
[2024-05-28] MEDS: INSULIN REGULAR IN 0.9 % NACL 100 UNIT/100 ML BAG 9.5 UNIT IV (05:37)
[2024-05-28 05:53] LABS: Estmated Average Glucose 140; Hemoglobin A1C 6.5 % (4.0-6.0)
[2024-05-28 05:54] LABS: Alanine Aminotransferase 127 U/L (0-41); Albumin Level 2.6 g/dL (3.5-5.2); Alkaline Phosphatase 75 U/L (40-130); Anion Gap 38.1 (5-19); Aspartate Amino Transferase 609 U/L (0-40); Blood Urea Nitrogen 21 mg/dL (8-23); Carbon Dioxide 13 mmol/L (22-29); Chloride 96 mmol/L (98-107); Creatinine Clr Calc Pharmacy 34.1333; Globulin 1.9 g/dL (1.3-4.6); Osmolality Calculated 326 mOsm/kg (285-295); Potassium 4.1 mmol/L (3.5-5.1); Sodium 143 mmol/L (136-145); Total Bilirubin 0.2 mg/dL (0.15-1.2); Total Protein 4.5 g/dL (6.6-8.7)
--- NOTE | 2024-05-28 06:01 | P.PNCC_ITS ---
Critical Care Event Note The high probability of a clinically significant, sudden or life threatening deterioration of the patient's [cardiovascular] system(s) required my full and direct attention, intervention and personal management. The critical care time is as shown. This time is in addition to time spent performing any reported procedures but includes the following: [x] Data and vital sign review and interpretation [x] Patient assessment, examination and intervention [x] Documentation [x] Medication orders and management Critical Care Time Code activated: Yes Critical Care Time (min): 40 Additional information about critical care time: Please see last consult note for details. Patient went back to the [facility] where he was found to have stent occlusion. He returned to the ICU with a balloon pump and a pacemaker. He was on maximal doses of norepinephrine and epinephrine. Most recent ABG showed pH less than 6.7, pCO2 of 60, pO2 of 80, bicarb of 6. Last CMP with bicarb 7 anion gap of 39.8, creatinine at 2, glucose 624 for which she was started on insulin drip, lactate of 25.8 troponins in excess of 6000. His most recent chest x-ray showed rib fractures likely from the CPR that he received earlier. O2 sats were 75 to 82% on ventilator. At approximately 5:50 AM, patient had V. tach for which he received cardioversion, he was pulseless, CPR was started. 3 doses of epinephrine administered. Patient started bleeding profusely via his ET tube. He remained pulseless, there was no perfusing rhythm. Patient was declared at 5:57 AM on May 28, 2024 In spite of CPR, and all resuscitative measures as outlined in hospitalist and cardiology notes, further resuscitative measures are highly unlikely to be useful. Patient's niece and her Christiano Castillo were able to come to bedside after being contacted earlier tonight. His family was unable to reach his son Lawrence in spite of multiple attempts too. The family also made several attempts to reach patient's sister, however phone went to voicemail. Detailed updates given to patient's niece and . Discussed patient's poor prognosis and the fact that further resuscitative measures are unlikely to be helpful to the patient. It would only add to his suffering. His most recent blood gas, elevated lactate of 25, worsening renal function, severe metabolic acidosis all 0.2 circulatory collapse. Further resuscitative attempts are futile at this point. primary team updated Currently no perfusing rhythm No spontaneous respiration Pupils are fixed and dilated Time of 5:57 AM Coding Level of Care Code Acute Code for Chg Fwd
[2024-05-28 06:12] LABS: Glucose 578 mg/dL (65-115); Lactate (Lactic Acid level) 27.7 mmol/L (0.5-2.2)
[2024-05-28 06:13] LABS: Reflex Lactate Order REFLEX LACTIC ORDERD
[2024-05-28 06:16] LABS: Covid PCR NEGATIVE (Negative); Influenza A NEGATIVE (Negative); Influenza B NEGATIVE (Negative); Respiratory Syncytial Virus Ce NEGATIVE (Negative)
--- NOTE | 2024-05-28 06:17 | PC.NURSE ---
Addendum entered by REYNA Gunderson 05/28/24 06:18: Witnessed waste of fentanyl and versed. Original Note: Wasted 97.042mL of fentanyl drip and 98.8mL of versed drip. Witnessed per Mekhi BLEVINS.
--- NOTE | 2024-05-28 06:19 | PC.NURSE ---
0502 -- received patient from seed analysis laboratory assistant via bed with seed analysis laboratory assistant team and Dr. Livingston at bedside. IABP and transvenous pacemaker in place and functioning properly. 0503 -- 1 amp NAHCO3 given IVP per Dr. Ramos at bedside, NAHCO3 drip started at 100mL/hr. 0515 -- OG tube placed as ordered. 0548 -- Sustained v-tach noted on environmental monitoring specialist, shocked with 120J, converted to A-fib/paced rhythm. 0551 -- v-fib noted on environmental monitoring specialist with no pulse, code blue called -- see code sheet for documentation. 0557 -- No ROSC obtained, no blood pressure, no pulse. PEA noted on environmental monitoring specialist. Dr. Rogel at bedside. Time of , patient pronounced.
--- NOTE | 2024-05-28 06:23 | PC.NURSE ---
MTS: This nurse spoke with MTS worker Parul regarding patient donor potentiality.
--- NOTE | 2024-05-28 06:43 | PC.NURSE ---
Code Blue Epi x 1 - 0253 Code blue called - 0254 Pulse check, PEA, epi x 1 - 0256 Pulse check, weak pulse, bradycardia, ROSC - 0257 Pulse 31, blood pressure 67/35 - 0257
--- NOTE | 2024-05-28 07:46 | PM.DDS ---
Discharge Providers DDS Date of Admission: 05/28/24 01:38 Date Summary Completed: 05/29/24 Attending Provider at Admission: Kelvin Livingston M.D Time of : 05:57 Attending Provider at Discharge: Kelvin Livingston M.D Primary Care Provider: MARVIN Vargas Diagnoses Hospital Diagnoses (1) STEMI (ST elevation myocardial infarction): (2) Cardiogenic shock: (3) Cardiac arrest: (4) Acute hypoxemic respiratory failure: (5) COPD (chronic obstructive pulmonary disease): Qualifiers: COPD type: unspecified COPD Qualified Code(s): J44.9 - Chronic obstructive pulmonary disease, unspecified (6) Diabetes mellitus with hyperglycemia, without long-term current use of insulin: Qualifiers: Diabetes mellitus type: type 2 Qualified Code(s): E11.65 - Type 2 diabetes mellitus with hyperglycemia (7) Pulmonary edema: (8) Metabolic acidosis: (9) Leukocytosis: Reason for Visit Reason for Visit low blood pressure, sob, chest pain Brief History: 74-year-old man who presented to hospital with chest pain and acute respiratory failure. He was put on bipap. He was in shock and was put on levophed. Was found to have ST elevation in inferior leads. Fruit Grading Supervisor was emergently activated and he was taken to the [facility] Super[facility]. Summary Date and Time of Date of : 05/28/24 Time of : 05:57 Summary Summary: Patient's coronary angiogram demonstrated totally occluded circumflex artery. Diffusely diseased RCA. Successful revascularization of circumflex artery with 2 stents. Patient continued to be in cardiogenic shock requiring Levophed. Was also on BiPAP. During the procedure he required a 1 shock secondary to VT. When he went to the ICU, he became progressively more short of breath and required intubation. Blood pressure also continued dropping. Was on epi gtt as well. Follow-up EKG showed ST elevation. CPR was performed for brief duration x 2. He was brought back to the [facility] and was found to have occluded circumflex artery stent with thrombus. Balloon angioplasty was used to restore flow. Intra-aortic balloon pump was placed. He was also bradycardic and attempted transvenous pacemaker was placed. Multiple attempts were made during all these events to reach his son however phone was going to voicemail. Patient's niece and her came to visit the hospital. They were updated by hospitalist , Dr Rogel and myself. Patient again coded and after resuscitation attempts, code was called off. Patient at 557AM. Additional Data Confirmation of as documented by pronouncing clinician: no pulse, no respirations, no heart sounds and pupils fixed and dilated Was code activated?: Yes Autopsy requested?: No Advance directives?: No Hospice patient?: No Discharge Plan Discharge Patient Disposition: Condition: Stable Prescriptions: No Action atenolol 100 mg tablet See Rx Instructions .ROUTE .COMPLEX Qty: 30 0RF Dose Instruction: TAKE ONE TABLET BY MOUTH DAILY Rx Instructions: TAKE ONE TABLET BY MOUTH DAILY Farxiga 5 mg tablet See Rx Instructions .ROUTE .COMPLEX Qty: 30 0RF Dose Instruction: TAKE ONE TABLET BY MOUTH EVERY MORNING Rx Instructions: TAKE ONE TABLET BY MOUTH EVERY MORNING cholecalciferol (vitamin D3) 25 mcg (1,000 unit) capsule 25 mcg PO DAILY Trelegy Ellipta 100-62.5-25 mcg blister with device 1 inh inhalation Q24H Qty: 60 0RF albuterol sulfate [Ventolin HFA] 90 mcg/actuation HFA aerosol inhaler 2 puff inhalation Q6H PRN (Reason: shortness of breath or wheezing) Qty: 18 5RF furosemide 20 mg tablet 20 mg PO DAILY Qty: 90 1RF pantoprazole [Protonix] 40 mg tablet,delayed release (DR/EC) 40 mg PO DAILY Qty: 90 1RF pravastatin 80 mg tablet 80 mg PO DAILY Qty: 90 1RF lisinopril 5 mg tablet 5 mg PO DAILY Qty: 90 1RF ascorbic acid (vitamin C) [Vitamin C] 250 mg Tablet 500 mg PO DAILY garlic 200 mg Tablet 200 mg PO DAILY ginseng 100 mg Capsule 100 mg PO DAILY vitamin E (dl, acetate) 180 mg (400 unit) Capsule 180 mg PO DAILY Referrals: Tracy Vásquez FNP [Primary Care Provider] - Patient Instructions: Opioid Safety Probable Cause of Probable cause of : Cardiac arrest DS Attestations Time Spent in /Discharge Care*: greater than 30 min Quality - AMI: AMI present?: Yes Quality - Stroke: CVA present?: No Quality - VTE: VTE present?: No Coding Level of Care Code Acute Code for [facility] Fwd Diagnoses STEMI (ST elevation myocardial infarction) I21.3 Cardiogenic shock R57.0 Cardiac arrest I46.9 Acute hypoxemic respiratory failure J96.01 Chronic obstructive pulmonary disease, unspecified COPD type J44.9 COPD type: unspecified COPD Type 2 diabetes mellitus with hyperglycemia, without long-term current use of insulin E11.65 Diabetes mellitus type: type 2 Pulmonary edema J81.1 Metabolic acidosis E87.20 Leukocytosis D72.829
[2024-05-28 10:56] LABS: MRSA PCR OZH (swab) MRSA Not Detected (Negative)
--- NOTE | 2024-05-28 13:32 | PC.NURSE ---
all lines removed this am and post mortem care done family here for visit , son took teeth and personal belongings with him. called back for home marianna at [facility] , mts called still awaiting call back from family and they have not answered so body to mourge pending release by MTS
--- NOTE | 2024-05-28 23:59 | XACV_ITS ---
Exam Room: 2 Ht: 173 cm Wt: 91 kg BSA: 2.11 m2 Gender: Male : 1950 Any Known Allergies: Penicillins Exam Priority: Routine Procedure(s): Procedure Description: Diagnostic procedure Procedure Description: PCI procedure Procedure Description: Drug Eluting Coronary Stent Procedure Description: PTCA Procedure Description: Coronary Angiography Les ARROYO; Diagnostic Cath Status: Emergency Diagnostic Findings * INDICATION: STEMI/Cardiogenic shock/ Acute Respiratory failure. * Left Main has no significant disease. * Left Anterior Descending has mild diffuse luminal irregularities. * Right Coronary Artery has diffuse disease however is small to medium sized vessel. * Proximal Circumflex: total thrombotic occlusion, TAPAN: 0 flow.This is the cultprit vessel for STEMI. * Coronary angiography shows left dominance. PCI Status: Emergency PCI Indication: Immediate PCI for STEMI Interventional Findings * Procedure detail: XB 3 5 guide catheter was used to engage the vessel. IV heparin was administered to maintain anticoagulation. Run-through wire was used to cross the left circumflex artery occlusion. Vessel was predilated with 2.5 x 12 mm semicompliant balloon. This was followed by placement of 2.75 x 22 mm resolute Guillermina drug-eluting stent from proximal to mid circumflex artery. There was residual stenosis at distal edge of the stent. We covered it with 2.75 x 18 mm resolute Guillermina drug-eluting stent. At this time final angiogram was performed that showed excellent stent expansion, no residual stenosis and TAPAN 3 flow. Patient still requiring levophed. During the procedure patient went into Ventricular tachycardia and had shockx 1 after which he was in atrial fibrillation. Patient also was put back on bipap and respiratory status was worsening. He will be evaluated again in the ICU and if respiratory status worsens further, may require intubation. * Proximal Circumflex: 100% stenosis treated with a AB TREK 2.50X12 RX BALLOON, and MDT R GUILLERMINA 2.75X22 JOEL. 0% residual stenosis, TAPAN: 3 flow. * Mid Circumflex: 70% stenosis treated with a MDT R GUILLERMINA 2.75X18 JOEL. 0% residual stenosis, TAPAN: 3 flow. Conclusions 1. Total thrombotic artery status post successful revascularization with 2 stents.. 2. Patient continues to be in shock and has respiratory distress. Currently on BiPAP and has stabilized with respiratory status. However if there is any worsening, will have low threshold of intubation. 3. Proximal Circumflex was treated with a Balloon, and Drug Eluting Stent. 4. Mid Circumflex was treated with a Drug Eluting Stent. Recommendations * Dual antiplatelet therapy with aspirin and plavix. * Transfer to ICU. * Consulting medicine team for management of medical issues including pneumonia and COPD exacerbation. Interventional RX Recommendation: PCI w/o planned CABG Diagnostic RX Recommendation: PCI w/o planned CABG Anticoagulation: Heparin Pressures Phase:Rest AO : 108 / 76 ( 89 ) @ 8:02:00 PM 121 / 96 ( 107 ) @ 8:02:00 PM 116 / 88 ( 101 ) @ 8:02:00 PM Clinical Evaluation EBL: 5mL-10mL Procedural Details Pre-Procedure Time Out. Identified patient by full name and date of as verbalized by the patient/guarantor. Does the consent match the physician's order: N/A Emergent. Accurate & Complete Informed Consent: N/A Emergent. Inpatient/Outpatient History & Physical on Chart: N/A Emergent. If H&P is completed, is and addenduem needed: N/A Emergent; If yes, is the addendum complete: N/A Emergent. Visualize and Verify Site with Patient/Guarantor: N/A. Relevant Radiology Images available: N/A. The risks, benefits, and alternatives of sedation and/or procedure were discussed by physician. The patient agrees to continue. Procedure started. [facility] Clinical Fraility Score: 6: Moderately Frail. Neonatologist Indications: ACS <= 24 hours. Chest Pain Symptom Assessment: Typical Angina Symptoms. Cardiovascular Instability: Yes, if yes, Persistant Ischemic Symptoms. Correct patient, site and procedure confirmed by cath team. Current diagnosis: STEMI. PERRLA. Strong, equal hand exercise instruct bilaterally. Lungs clear x 5 lobes. IV Site on Arrival: 20 gauge in the left anticubital. IV Site on Arrival: 20 gauge in the right anticubital. IV Fluids: 0.9% NaCl at KVO. 1000 mL infused prior to dental laboratory worker. Pre Procedural Pulses: bilateral dorsalis pedis was 1+. right groin was prepped with chloroprep then draped in the usual sterile fashion. left groin was prepped with chloroprep then draped in the usual sterile fashion. Baseline sample Acquired. HR: 41 BPM. Physician notified. Physician arrived. Physician scrubbed in. Immediate Pre-Procedure Time Out. Correct Patient: Yes; Correct Procedure: Yes; Correct Site: Yes; Correct Patient Position: Yes; Correct Supplies: Yes; Dried Flammable Prep: Yes; Blood Products Available: N/A;. Lidocaine 1% infiltrated to the right groin. 6 macedonian JR 4 guide catheter was inserted over the wire. Cine run performed of RCA. RT called urgently to place pt on Bipap. Admit Source: Emergency department. JR4 Guide out over wire. A 5 macedonian JL4 catheter in over wire. Multiple views taken of left coronary artery. Catheter removed over the standard wire. 6 macedonian XB 3.5 guide catheter was inserted over the wire. Runthrough guidewire was advanced through the guide catheter to lesion in the Prox Circ. Inflation number : 1 A AB TREK 2.50X12 RX BALLOON was prepped and advanced across the Prox CX , then inflated to 10 CANDELARIA for 0:05 seconds. Balloon out. Balloon inserted to lesion in the prox Circ. Results checked. Norepinephrine infusing at 10mcg. Pt in v-tach rythym. Defibrillated at 120J. Intact stent removed over wire. Stent inserted to lesion in the prox Circ. Guideliner inserted. Stent inserted to lesion in the prox Circ. Inflation Number : 2 Leora Ross GUILLERMINA 2.75X22 JOEL -Lot Number# [id number] Exp 02/20/2026 was prepped and advanced across the Prox CX. The stent was deployed at 12 CANDELARIA for 0:18 seconds. Stent balloon out over wire. Guideliner removed over wire. Results checked. Stent inserted to lesion in the mid Circ. Inflation Number : 1 A JOSE Ross GUILLERMINA 2.75X18 JOEL -Lot Number# [id number] Exp 06/19/2024 was prepped and advanced across the Mid CX. The stent was deployed at 12 CANDELARIA for 0:14 seconds. Inflation number: 2 The stent balloon was then re-inflated across the Mid CX to 12 CANDELARIA for 0:04 seconds. Stent balloon out over wire. Results checked. Guide catheter and wire out. PCI Indication : Immediate PCI for STEMI. ACT drawn. Results out of range high. . Therapeutic limits - pre-heparin administration 90-150 seconds and monitoring heparin during a vascular procedure >250 seconds. Post Procedure: Pulses reassessed and unchanged. A Suture was successful obtaining hemostatsis at the Right Femoral artery insertion site. Physician scrubbed out. Sheath(s) sutured into position with 2-0 silk and sterile 4x4's and Op-site applied over the site. No oozing or signs and symptoms of hematoma noted. PERRLA. Strong, equal hand exercise instruct bilaterally. No VTE prophylaxis required. Medication's Wasted: Lidocaine 1% = 10 mL. Medication's Wasted: Other = versed 1 mg. Medication's Wasted: Other = Fentanyl 100 mcg. ACT drawn. Results 229 seconds. Therapeutic limits - pre-heparin administration 90-150 seconds and monitoring heparin during a vascular procedure >250 seconds. Medication's Wasted: Heparin = 4000 u. PCI Indication: STEMI. Post-op diagnosis: Total Occlusion of Prox Circumflex s/p successful PCI. Complications: none. Estimated blood loss: 5mL-10mL. Responsiveness - Normal response to verbal stimuli; alert and oriented, PERRLA. Airway - Unaffected, no intervention required; spontaneous ventilation on BIpap. Circulation: W/N/L, pulses unchanged. Nausea/Vomiting: No. Procedure completed. Patient transferred by bed to ICU. Total IV fluids: 50 mL. Vital chart was stopped. Access Site Site: Right Femoral artery Sheath Size: 6 Fr Hemostasis Method: Suture Hemostasis Success: Successful Procedure Medications Start: 12:29 AM Stop: 12:29 AM Medication: Versed Amount: 1 mg Route: I.V. Start: 12:29 AM Stop: 12:29 AM Medication: Heparin Amount: 4000 units Route: I.V. Start: 12:42 AM Stop: 12:42 AM Medication: Amiodarone (Cordarone) Amount: 150 mg Route: I.V. bolus Start: 12:57 AM Stop: 12:57 AM Medication: Heparin Amount: 1000 units Route: I.V. I, the attending physician, have reviewed and verified all procedure medications. Yes, all medications given per verbal order Report Signatures Finalized by Kelvin Livingston MD on 05/29/2024 08:13 AM
--- NOTE | 2024-05-29 09:41 | PC.NURSE ---
[facility] [place] PICKED UP PT AT 0912, ALL SUPPORTING DOCUMENTS GIVEN TO [facility] DEVELOPER OF HOME.
== END 2024-05-28 05:57 | disposition expired | DRG 270 ==
LOC: ER 05-28 01:05 → ICU 05-28 01:39
PROVIDERS: Student in an Organized Health Care Education/Training Program; Admitting Provider Internal Medicine; Emergency Provider Emergency Medicine; PCP Nurse Practitioner Family; Visit Provider Internal Medicine
PROC: 5A02210 Assistance with Cardiac Output using Balloon Pump, Continuous (ICD-10-PCS; principal; 2024-05-28 00:20)
PROC: 5A02210 Assistance with Cardiac Output using Balloon Pump, Continuous (ICD-10-PCS; 2024-05-28 00:20)
DX: I21.21 ST elevation (STEMI) myocardial infarction involving left circumflex coronary artery (principal); J18.9 Pneumonia, unspecified organism; J96.00 Acute respiratory failure, unspecified whether with hypoxia or hypercapnia; J44.0 Chronic obstructive pulmonary disease with (acute) lower respiratory infection; T82.868A Thrombosis due to vascular prosthetic devices, implants and grafts, initial encounter; E87.20 Acidosis, unspecified; J81.1 Chronic pulmonary edema; I45.10 Unspecified right bundle-branch block; I95.9 Hypotension, unspecified; E11.65 Type 2 diabetes mellitus with hyperglycemia; F41.9 Anxiety disorder, unspecified; I10 Essential (primary) hypertension; E78.5 Hyperlipidemia, unspecified; F17.210 Nicotine dependence, cigarettes, uncomplicated; I48.91 Unspecified atrial fibrillation; R57.0 Cardiogenic shock; R00.1 Bradycardia, unspecified; Y71.8 Miscellaneous cardiovascular devices associated with adverse incidents, not elsewhere classified; I46.9 Cardiac arrest, cause unspecified
CPT/HCPCS: 0241U; 33210; 33967; 36416; 36592; 36600; 51702; 71045; 80048; 80051; 80053; 82330; 82803; 82805; 82962; 83036; 83605; 83880; 84484; 85007; 85025; 85027; 85347; 85378; 85730; 86140; 87040; 93005; 93454; 94002; 94660; 96365; 96366; 96367; 96374; 96375; 99152; 99153; 99291; A4222; C1725; C1769; C1779; C1874; C1887; C1894; C9600; J0171; J0282; J0283; J0330; J0461; J1644; J1940; J2020; J2185; J2250; J2405; J2919; J3010; J3490; J7030; J7070; J7613; Q9967